=== PATIENT | male | born 1985 | race Caucasian/White ===

== ENCOUNTER 2020-06-06 12:33 | Outpatient (REF) | payer OTHER, SELFPAY ==
[2020-06-06 14:35] LABS: Alanine Aminotransferase 9 U/L (0-40); Albumin Level 4.6 g/dL (3.5-5.0); Alkaline Phosphatase 78 U/L (39-117); Anion Gap 14 (12-20); Aspartate Amino Transferase 11 U/L (5-37); Bilirubin Direct 0.2 mg/dL (0.0-0.5); Bilirubin Total 0.4 mg/dL (0.0-1.0); Blood Urea Nitrogen 16 mg/dL (9-16); Calcium 9.2 mg/dL (8.4-10.2); Carbon Dioxide 28 mmol/L (22-29); Chloride 104 mmol/L (96-108); Cholesterol 185 mg/dL; Estimated Glomerular Filt Rate > 60; Glucose Fasting 114 mg/dL (60-99); HDL Cholesterol 45 mg/dL; LDL Cholesterol Calculated 111 mg/dl; Potassium 4.8 mmol/l (3.3-5.1); Sodium 141 mmol/L (135-145); Total Protein 7.9 g/dL (6.5-8.0); Triglycerides 145 mg/dL
== END 2020-06-06 12:34 | disposition home or self-care (01) ==
LOC: HO.HMGCLDS 12:33
PROVIDERS: PCP Internal Medicine; Visit Provider Internal Medicine
DX: I10 Essential (primary) hypertension (principal)
CPT/HCPCS: 36415; 80048; 80061; 80076

== ENCOUNTER 2020-10-04 12:30 | Outpatient (REF) | payer OTHER, SELFPAY ==
[2020-10-04 14:20] LABS: Estimated Average Glucose 108 mg/dL; Hemoglobin A1c % 5.4 %
[2020-10-04 14:39] LABS: Alanine Aminotransferase 11 U/L (0-40); Albumin Level 4.4 g/dL (3.5-5.0); Alkaline Phosphatase 77 U/L (39-117); Anion Gap 12 (12-20); Aspartate Amino Transferase 14 U/L (5-37); Bilirubin Total 0.3 mg/dL (0.0-1.0); Blood Urea Nitrogen 17 mg/dL (9-16); Calcium 9.4 mg/dL (8.4-10.2); Carbon Dioxide 25 mmol/L (22-29); Chloride 107 mmol/L (96-108); Estimated Glomerular Filt Rate > 60; Glucose Random 101 mg/dL (60-115); Potassium 4.4 mmol/L (3.3-5.1); Sodium 140 mmol/L (135-145); Total Protein 7.5 g/dL (6.5-8.0)
== END 2020-10-04 12:31 | disposition home or self-care (01) ==
LOC: HO.HMGCLDS 12:30
PROVIDERS: PCP Internal Medicine; Visit Provider Internal Medicine
DX: Z00.01 Encounter for general adult medical examination with abnormal findings (principal); I10 Essential (primary) hypertension; R73.01 Impaired fasting glucose
CPT/HCPCS: 36415; 80053; 83036

== ENCOUNTER 2021-04-24 15:23 | Outpatient (REF) | payer OTHER, SELFPAY ==
--- NOTE | ~2021-04-24 | US_ITS ---
EXAMINATION: US RETROPERITONEAL LIMITED (RENAL ONLY) CLINICAL INFORMATION: Hypertension. Acute injury of kidney. COMPARISON: Renal ultrasound 10/28/2016. TECHNIQUE: Real-time imaging of the kidneys. FINDINGS: RIGHT KIDNEY: 11.5 x 6.1 x 5.7 cm (SAG x AP x TRV). The kidney is normal in size, contour, and echogenicity. Renal cortical thickness is normal. No calculi or focal parenchymal lesions. No hydronephrosis. LEFT KIDNEY: 11.7 x 6.5 x 5.8 cm (SAG x AP x TRV). The kidney is normal in size, contour, and echogenicity. Renal cortical thickness is normal. No calculi or focal parenchymal lesions. No hydronephrosis. There is an echogenic calcification midpole. US/US renal BI IMPRESSION: Unremarkable renal ultrasound except for a punctate calcification in midpole left kidney.
== END 2021-04-24 15:24 | disposition home or self-care (01) ==
LOC: HO.US 15:23
PROVIDERS: Visit Provider Internal Medicine Hypertension Specialist
DX: N17.9 Acute kidney failure, unspecified (principal); I10 Essential (primary) hypertension
CPT/HCPCS: 76775

== ENCOUNTER 2021-05-09 12:16 | Outpatient (REF) | payer OTHER, SELFPAY ==
[2021-05-09 14:21] LABS: Anion Gap 11 (12-20); Blood Urea Nitrogen 11 mg/dL (9-16); Calcium 9.3 mg/dL (8.4-10.2); Carbon Dioxide 29 mmol/L (22-29); Chloride 108 mmol/L (96-108); Estimated Glomerular Filt Rate > 60; Glucose Random 104 mg/dL (60-115); Potassium 4.7 mmol/L (3.3-5.1); Sodium 143 mmol/L (135-145)
[2021-05-09 14:31] LABS: Creatinine Urine 399.87 mg/dL; Protein/Creatinine Ratio, Ur 0.05 (<0.2); Total Protein Urine Random 18 mg/dL (<12)
== END 2021-05-09 12:17 | disposition home or self-care (01) ==
LOC: HO.HMGCLDS 12:16
PROVIDERS: PCP Internal Medicine; Visit Provider Internal Medicine Hypertension Specialist
DX: I10 Essential (primary) hypertension (principal); N17.9 Acute kidney failure, unspecified
CPT/HCPCS: 36415; 80048; 84156

== ENCOUNTER 2022-06-26 11:11 | Outpatient (REF) | payer OTHER, SELFPAY ==
--- NOTE | ~2022-06-26 | XR_ITS ---
EXAMINATION: XR FOOT, LEFT CLINICAL INFORMATION: Foot pain COMPARISON: None TECHNIQUE: AP, lateral, and oblique views of the left foot. FINDINGS: No fracture, dislocation or destructive lesion or radiopaque foreign body. XR/XR foot LT 2V IMPRESSION: Unremarkable exam.
[2022-06-26 13:55] LABS: MANUAL DIFF FLAG NO
[2022-06-26 14:03] LABS: Basophils Percent Auto 0.2 % (0-2); Eosinophils Absolute Auto 0.3 X10*3/uL (0.0-0.4); Eosinophils Percent Auto 3.1 % (0-4); Hematocrit 46.1 % (42.0-52.0); Hemoglobin 15.1 g/dl (14.0-18.0); Imm Gran Abs Auto 0.04 X10*3/uL (0.00-0.03); Imm Gran Pct Auto 0.5 % (0.0-0.4); Lymphocytes Absolute Auto 2.4 X10*3/uL (1.2-4.9); Lymphocytes Percent Auto 27.8 % (20-40); Mean Corpuscular HGB Conc 32.8 g/dl (31.0-36.0); Mean Corpuscular Hemoglobin 29.4 pg (27.0-33.0); Mean Corpuscular Volume 89.9 fL (80.0-98.0); Mean Platelet Volume 9.5 fL (9.4-12.4); Monocytes Absolute Auto 0.6 X10*3/uL (0.1-1.2); Monocytes Percent Auto 6.8 % (2-11); Neutrophils Absolute Auto 5.2 x10*3/uL (2.0-8.3); Neutrophils Percent Auto 61.6 % (45-73); Platelet Count 256 X10*3/uL (160-400); Red Blood Count 5.13 X10*6/uL (4.60-5.80); White Blood Count 8.5 X10*3/uL (4.8-10.8)
[2022-06-26 14:10] LABS: Estimated Average Glucose 114 mg/dL; Hemoglobin A1c % 5.6 %
[2022-06-26 14:38] LABS: Alanine Aminotransferase 14 U/L (0-40); Albumin Level 4.2 g/dL (3.5-5.0); Alkaline Phosphatase 63 U/L (39-117); Anion Gap 12 (12-20); Aspartate Amino Transferase 14 U/L (5-37); Bilirubin Total 0.5 mg/dL (0.0-1.0); Blood Urea Nitrogen 15 mg/dL (9-16); Calcium 9.1 mg/dL (8.4-10.2); Carbon Dioxide 25 mmol/L (22-29); Chloride 108 mmol/L (96-108); Estimated Glomerular Filt Rate > 60; Glucose Random 117 mg/dL (60-115); Potassium 4.1 mmol/L (3.3-5.1); Sodium 141 mmol/L (135-145); Total Protein 7.1 g/dL (6.5-8.0)
[2022-06-26 14:44] LABS: TSH reflex Free T4 1.59 uIU/mL (0.32-4.0)
[2022-06-27 05:48] LABS: LDL Cholesterol Direct 135 mg/dL (<100)
== END 2022-06-26 11:12 | disposition home or self-care (01) ==
LOC: HO.HMGCLDS 11:11
PROVIDERS: Visit Provider Internal Medicine
DX: Z00.01 Encounter for general adult medical examination with abnormal findings (principal); S99.922A Unspecified injury of left foot, initial encounter; R73.01 Impaired fasting glucose; I10 Essential (primary) hypertension; E66.09 Other obesity due to excess calories; X58.XXXA Exposure to other specified factors, initial encounter; Y93.9 Activity, unspecified; Y92.9 Unspecified place or not applicable; Y99.9 Unspecified external cause status
CPT/HCPCS: 36415; 73620; 80053; 83036; 83721; 84443; 85025

== ENCOUNTER → 2022-07-03 14:48 | Outpatient (BNVA) | payer OTHER, SELFPAY | PROVIDERS: PCP Internal Medicine; Visit Provider Urology | DX: N41.9 Inflammatory disease of prostate, unspecified (principal) | CPT/HCPCS: 99202 ==

== ENCOUNTER → 2022-07-04 14:43 | Outpatient (BNVA) | payer OTHER, SELFPAY | PROVIDERS: PCP Internal Medicine; Visit Provider Physician Assistant | DX: M72.2 Plantar fascial fibromatosis (principal) | CPT/HCPCS: 99202 ==

== ENCOUNTER → 2022-08-14 11:38 | Outpatient (BNVA) | payer OTHER, SELFPAY | PROVIDERS: PCP Internal Medicine; Visit Provider Physician Assistant | DX: K21.9 Gastro-esophageal reflux disease without esophagitis (principal) | CPT/HCPCS: 99202 ==

== ENCOUNTER 2022-08-19 14:17 | Outpatient (REF) | payer OTHER, SELFPAY | END 2022-08-19 14:18 | disposition home or self-care (01) | LOC: HO.HMGCLNP 14:17 | PROVIDERS: PCP Internal Medicine; Visit Provider Physician Assistant | DX: A04.8 Other specified bacterial intestinal infections (principal) | CPT/HCPCS: 87338 ==

== ENCOUNTER 2022-09-12 14:00 | Outpatient (RCR) | payer OTHER, SELFPAY ==
--- NOTE | 2022-08-01 17:00 | MHC.PT.EP ---
[facility] [place] [facility] [place] [facility] Office [address] [phone] F: [phone] F: [phone] F: [phone] F: [phone] Physical Therapy Plan of Care Date of Evaluation: Date of Surgery: Diagnosis: LEFT foot Plantar fascial fibromatosis Assessment: Patient is a 36 y.o. male who is referred to PT by YUDITH Haji, with Dx of LEFT foot Plantar fascial fibromatosis. Patient impairments include pain, palpable nodule/scar tissue, antalgic gait. Patient current functional limitations are difficulty with uneven surfaces during gait due to pain bottom of foot. Patient will benefit from skilled PT to address aforementioned impairments and functional limitations to meet established goals. Frequency and Duration: The patient will be seen 2x/week for 4 weeks Short Term Goals: 2 weeks Patient demonstrates consistency and independence with HEP to self manage symptoms. Long-Term Goals: 4 weeks Patient presents with increased L ankle DF 5 degrees to normalize gait pattern. Patient presents with increased L ankle inversion/eversion strength to ambulate on uneven surfaces without sxs. Treatment Plan: Modalities to reduce pain, spasms and effusion. Manual therapy to restore motion and function. Therapeutic exercise to improve strength and flexibility. Neuromuscular re-education for posture and balance. Therapeutic activities to return to functional activities of daily living. Electronically signed by: Dieter Arellano, PT, DPT Please sign and return to therapist. Thank you for your referral.
--- NOTE | 2022-09-12 14:51 | MHC.PT.DC ---
[facility] [place] Office [place] Office [place] Office [address] Zenon Constantino [address] [phone] F: [phone] F: [phone] F: [phone] F: [phone] Physical Therapy Discharge Report Diagnosis: LEFT foot Plantar fascial fibromatosis Date of Surgery: Date of Evaluation: 08/01/22 Date of Discharge: 09/12/22 Treatments to Date: 6 Cancellations to Date: No Shows to Date: Discharge Status: Achieved Goals Improved Function Independent with HEP Discharge Summary: Patient presents with near resolved symptoms of nodule in plantar aspect of L foot he came to PT for. Treatments helped to reduce pain to 0/10 and with very minimal tenderness with manual therapy to reduce tissue tension. I educate him on continuing to massage the area at home to fully resolve all sxs and he can utilize sports tape ([employer] K-tape) at home if needed. He is discharged from PT at this time. Electronically signed by: Dieter Arellano, PT, DPT Please sign and return to therapist. Thank you for your referral.
== END 2022-09-12 15:04 | disposition home or self-care (01) ==
LOC: HO.PT 14:00
PROVIDERS: PCP Internal Medicine; Visit Provider Physician Assistant
DX: M72.0 Palmar fascial fibromatosis [Dupuytren] (principal)
CPT/HCPCS: 97035; 97110; 97112; 97140; 97161

== ENCOUNTER → 2022-10-07 11:48 | Outpatient (BNVA) | payer OTHER, SELFPAY | PROVIDERS: PCP Internal Medicine; Visit Provider Urology ==

== ENCOUNTER → 2022-10-22 12:29 | Outpatient (BNVA) | payer OTHER, SELFPAY | PROVIDERS: PCP Internal Medicine; Visit Provider Physician Assistant ==

== ENCOUNTER 2023-01-08 15:08 | Outpatient (AMB) | payer OTHER, SELFPAY ==
--- NOTE | 2023-01-08 15:13 | A.OFFPC_ITS ---
Vital Signs 01/08/23 15:14 Height 6 ft 2 in Weight 225 lb 8 oz BMI 28.9 BP 120/72 Blood Pressure Location Lt brachial Position Sitting Pulse 70 Pulse Source Pulse Oximeter Pulse Oximetry (%) 100 Oxygen Delivery Method Room Air Intake Visit Reasons: request for cardiology referral-chest tightness Allergies No Known Allergies [No Known Allergies*] Allergy (Verified 01/08/23 15:20) Medication List - Last Reconciled 01/08/[address]once MD amlodipine 1/2 tab a day PO daily; metoprolol tartrate 100 mg PO DAILY pantoprazole 40 mg PO DAILY PRN 30 days tamsulosin (Flomax) 0.4 mg PO BEDTIME Tobacco use date assessed: 01/08/23 Dental Screening Dental Screen Date: 01/08/23 Did you have a dental visit in the last 12 months?: No Did you have a dental problem in the last 6 months where you did not have access to dental care?: No Was dental information given to patient?: No HPI request for cardiology referral-chest tightness HPI Details Patient is 37-year-old gentleman came in today to talk about chest tightness Patient says that it happens off and on, he is feeling fine today. Patient says that sometimes it happens when he is active and then other times it happens when he is eating something. Patient is currently under care of gastroenterology and is taking medication through them which is helping him with the symptoms. However he continued to have chest tightness which is concerning to patient. He has stop drinking alcohol 2 years ago patient was drinking excessively before that EKG done today shows normal sinus rhythm no acute findings 68 beats per minute, he does have hypertension and is taking medication with good control of blood pressure. I have ordered echocardiogram and exercise stress test for him and I have placed a referral to technology sales representative for evaluation COUNTS INCLUDE [facility] BEDS AT THE [facility] Surgical History History of tonsillectomy Family History Father No problems noted. Mother No problems noted. Brother No problems noted. Sister No problems noted. Social History Housing: House Alcohol intake: current Alcohol intake frequency: a few times a month Patient Tobacco Use Status: Never used Tobacco e-Cigarette/Vaping Use: Never Used Current occupational status: unemployed Cognitive needs: No Hearing needs: No Vision needs: No Questionnaire PHQ-9 Over the last 2 weeks, how often have you been bothered by any of the following problems? 1. Little interest or pleasure in doing things: more than half the days 2. Feeling down, depressed, or hopeless: more than half the days 3. Trouble falling or staying asleep, or sleeping too much: more than half the days 4. Feeling tired or having little energy: more than half the days 5. Poor appetite or overeating: more than half the days 6. Feeling bad about yourself - or that you are a failure or have let yourself or your family down: more than half the days 7. Trouble concentrating on things, such as reading the newspaper or watching television: more than half the days 8. Moving or speaking so slowly that other people could have noticed. Or the opposite - being so fidgety or restless that you have been moving around a lot more than usual: more than half the days 9. Thoughts that you would be better off or of hurting yourself in some way: more than half the days Total score: 18 Depression Screening Interpretation: Positive 40896 - PHQ-9 Billing: Yes Source: Developed by Drs. Benoit Trammell, Gisella Billingsley, Олег Allison and colleagues, with an educational satish from [employer]. Thrive Questionnaire Date Thrive assessed: 01/08/23 I am a: Patient What is your living situation today?: I have a steady place to live Within the past 12 months, did the food you bought not last and you didn't have the money to get more?: Never true Within the past 12 months, did you worry whether your food would run out before you got money to buy more?: Never true Do you have trouble paying for medicines?: No Do you have trouble getting transportation to medical appointments?: No Do you have trouble paying your heating and electricity bill?: No Do you have trouble taking care of your child, family member or friend?: No Do you have trouble with day-to-day activities such as bathing, preparing meals, shopping, managing finances, etc.?: No Are you currently unemployed and looking for a job?: No Are you interested in more education?: No AUDIT C Alcohol Use Questionnaire (AUDIT-C) 1. How often do you have a drink containing alcohol?: Never 3. How often do you have six or more drinks on one occasion?: Never Total Score: 0 Score Reviewed/Action Taken: Yes MAXIMO-7 AMB Questionnaire MAXIMO-7 Date MAXIMO - 7 assessed: 01/08/23 Feeling nervous, anxious, or on edge: 2 = More than half the days Not being able to stop or control worryin = More than half the days Worrying too much about different things: 2 = More than half the days Trouble relaxin = More than half the days Being so restless that it is hard to sit still: 2 = More than half the days Becoming easily annoyed or irritable: 2 = More than half the days Feeling afraid as if something awful might happen: 2 = More than half the days Total MAXIMO-7 score (0-4 normal; 5-9 mild; 10-14 moderate; 15-21 severe): 14 Source: Developed by Drs. Benoit Trammell, Gisella Billingsley, Олег Allison and colleagues, with an educational satish from [employer]. MAXIMO-7 Assessment Billing MAXIMO-7 Assessment Tool: MAXIMO-7 Assessment 86552 Review of Systems Const Denies chills and Denies fever(s) ENT Denies epistaxis and Denies nasal discharge Resp Denies chest congestion, Denies cough and Denies hemoptysis GI Denies diarrhea and Denies nausea Skin/Breast Denies rash Neuro Reports no additional complaints Psych Reports no additional complaints Endo Reports no additional complaints Physical exam (Primary Care) Vital Signs: Last Vital Signs Pulse 70 01/08/23 15:14 BP 120/72 01/08/23 15:14 Pulse Ox 100 01/08/23 15:14 Oxygen Delivery Method Room Air 01/08/23 15:14 BMI result Body Mass Index 28.9 Tobacco/Smoking Status: Tobacco use Status Tobacco use date assessed 01/08/23 01/08/23 15:23 Patient Tobacco Use Status Never used Tobacco 01/08/23 15:16 e-Cigarette/Vaping Use Never Used 01/08/23 15:16 PHQ-9: PHQ-9 Score PHQ-9: Total score 18 01/08/23 15:43 Depression Screening Interpretation: Positive Thrive Assessment: Date of Thrive Assessment Date Thrive assessed 01/08/23 01/08/23 15:43 Const General: cooperative, comfortable and no acute distress Orientation/consciousness: patient oriented x3 HENWV Head: Yes normocephalic Eyes General: appearance normal, both eyes and all related structures Neck Neck: Yes supple Resp Effort & Inspection: normal respiratory effort, no cough and no stridor Cardio Rhythm: regular rhythm Heart sounds: S1 normal heart sound present and S2 normal heart sound present Skin General skin exam: turgor normal Neuro General: patient oriented x3, tone normal and moves all extremities Extrem Right lower extremity: no edema Left lower extremity: no edema Office Procedures EKG 50310-[id number], Complete Assessment and Plan Assessment & Plan (1) Chest tightness: Code(s): R07.89 - Other chest pain (2) Hypertension, essential: Code(s): I10 - Essential (primary) hypertension (3) Acid reflux: Comment: Continue pantoprazole, avoid culprits Code(s): K21.9 - Gastro-esophageal reflux disease without esophagitis Qualifiers: Esophagitis presence: with esophagitis Esophagitis bleeding: without hemorrhage Qualified Code(s): K21.00 - Gastro-esophageal reflux disease with esophagitis, without bleeding (4) Major depression, recurrent: Code(s): F33.9 - Major depressive disorder, recurrent, unspecified Qualifiers: Active/Remission status: currently active Major depression episode severity: severe Psychotic features: without psychotic features Qualified Code(s): F33.2 - Major depressive disorder, recurrent severe without psychotic features Plan Patient is 37-year-old gentleman came in today to talk about chest tightness Patient says that it happens off and on, he is feeling fine today. Patient says that sometimes it happens when he is active and then other times it happens when he is eating something. Patient is currently under care of gastroenterology and is taking medication through them which is helping him with the symptoms. However he continued to have chest tightness which is concerning to patient. He has stop drinking alcohol 2 years ago patient was drinking excessively before that EKG done today shows normal sinus rhythm no acute findings 68 beats per minute, he does have hypertension and is taking medication with good control of blood pressure. I have ordered echocardiogram and exercise stress test for him and I have placed a referral to technology sales representative for evaluation His depression screening is positive I have sent message to baby health coordinator Orders: Orders CA stress test Today I10 - Essential (primary) hypertension, R07.89 - Other chest pain CA echo transthoracic complete Today I10 - Essential (primary) hypertension, R07.89 - Other chest pain AMB EKG-In Office Today R07.89 - Other chest pain Referrals Cardiology Referral I10 - Essential (primary) hypertension, R07.89 - Other chest pain Coding Level of Care Code Est Pt Level 4 (47496) Diagnoses Chest tightness R07.89 Hypertension, essential I10 Acid reflux K21.00 Esophagitis presence: with esophagitis Esophagitis bleeding: without hemorrhage Major depression, recurrent F33.2 Active/Remission status: currently active Major depression episode severity: severe Psychotic features: without psychotic features CPT Codes EKG - CPT: 80544-[id number], Complete ([id number]) Additional Codes MAXIMO-7 Assessment Billing - MAXIMO-7 Assessment Tool: MAXIMO-7 Assessment [id number] ([id number])
[2023-01-08 15:14] VITALS: BP 120/72; PULSE 70; O2SAT 100; BMI 28.9
== END 2023-01-08 15:39 | disposition home or self-care (01) ==
PROVIDERS: PCP Internal Medicine; Visit Provider Internal Medicine
DX: R07.89 Other chest pain (principal); I10 Essential (primary) hypertension; K21.00 Gastro-esophageal reflux disease with esophagitis, without bleeding; F33.2 Major depressive disorder, recurrent severe without psychotic features
CPT/HCPCS: 93000; 99214

== ENCOUNTER 2023-01-16 09:36 | Outpatient (AMB) | payer OTHER, SELFPAY ==
--- NOTE | 2023-01-16 09:37 | A.OFFPC_ITS ---
Intake Visit Reasons: Discuss Lab Order~ Allergies No Known Allergies [No Known Allergies*] Allergy (Verified 01/16/23 09:37) Medication List - Last Reconciled 01/16/[address] Ponce MD amlodipine 1/2 tab a day PO daily; metoprolol tartrate 100 mg PO DAILY pantoprazole 40 mg PO DAILY PRN 30 days tamsulosin (Flomax) 0.4 mg PO BEDTIME Tobacco use date assessed: 01/16/23 Dental Screening Dental Screen Date: 01/16/23 Did you have a dental visit in the last 12 months?: No Did you have a dental problem in the last 6 months where you did not have access to dental care?: No Was dental information given to patient?: No HPI Discuss Lab Order~ HPI Details Patient is 37-year-old gentleman. He is complaining of feeling tingling around the corner off his lips, Patient is concerned that he might be having herpes lesion. He is requesting blood test to check for herpes antibodies. Along with other STD screening. He does not have any fever or any other symptoms. He does not have any recent unprotected intimate encounter with anyone as . [facility]LY [facility], [facility] Surgical History History of tonsillectomy Family History Father No problems noted. Mother No problems noted. Brother No problems noted. Sister No problems noted. Social History Housing: House Alcohol intake: current Alcohol intake frequency: a few times a month Patient Tobacco Use Status: Never used Tobacco e-Cigarette/Vaping Use: Never Used Current occupational status: unemployed Cognitive needs: No Hearing needs: No Vision needs: No Questionnaire Thrive Questionnaire Date Thrive assessed: 01/08/23 AUDIT C Alcohol Use Questionnaire (AUDIT-C) 1. How often do you have a drink containing alcohol?: Never 3. How often do you have six or more drinks on one occasion?: Never Total Score: 0 Score Reviewed/Action Taken: Yes MAXIMO-7 AMB Questionnaire MAXIMO-7 Date MAXIMO - 7 assessed: 01/08/23 Source: Developed by Drs. Benoit Trammell, Gisella BillingsleyОлег and colleagues, with an educational satish from [employer]. Review of Systems Const Denies chills and Denies fever(s) ENT Denies epistaxis and Denies nasal discharge Card Denies chest pain Resp Denies chest congestion, Denies cough and Denies hemoptysis GI Denies diarrhea and Denies nausea Skin/Breast Denies rash Neuro Reports no additional complaints Psych Reports no additional complaints Endo Reports no additional complaints Physical exam (Primary Care) Tobacco/Smoking Status: Tobacco use Status Tobacco use date assessed 01/16/23 01/16/23 09:38 Patient Tobacco Use Status Never used Tobacco 01/16/23 09:38 e-Cigarette/Vaping Use Never Used 01/16/23 09:38 Thrive Assessment: Date of Thrive Assessment Date Thrive assessed 01/08/23 01/16/23 09:38 Telehealth Telehealth Location of provider rendering services: practice address Location of patient: address on file Patient Identification confirmed using: Name, : Yes Telehealth method: voice only Patient verbally consented to treatment: Yes Patient verbally consented to billing insurance company: Yes Patient informed of any privacy concerns related to visit: Yes Minutes spent on Phone/Video with Pt.: 13 Assessment and Plan Assessment & Plan (1) Screening for STD (sexually transmitted disease): Code(s): Z11.3 - Encounter for screening for infections with a predominantly sexual mode of transmission (2) Tingling sensation in face: Code(s): R20.2 - Paresthesia of skin Plan Patient is 37-year-old gentleman. He is complaining of feeling tingling around the corner off his lips, Patient is concerned that he might be having herpes lesion. He is requesting blood test to check for herpes antibodies. Along with other STD screening. He does not have any fever or any other symptoms. He does not have any recent unprotected intimate encounter with anyone as . Orders: Orders Hepatitis B Surface Antibody Today R20.2 - Paresthesia of skin, Z11.3 - Encounter for screening for infections with a predominantly sexual mode of transmission Hepatitis C Antibody Today R20.2 - Paresthesia of skin, Z11.3 - Encounter for screening for infections with a predominantly sexual mode of transmission Herpes Simplex Virus Ab IgG Today R20.2 - Paresthesia of skin, Z11.3 - Encounter for screening for infections with a predominantly sexual mode of transmission HIV Ab/Ag Today R20.2 - Paresthesia of skin, Z11.3 - Encounter for screening for infections with a predominantly sexual mode of transmission Syphilis Screen Today R20.2 - Paresthesia of skin, Z11.3 - Encounter for screening for infections with a predominantly sexual mode of transmission Coding Level of Care Code Tele Est Pt Level 3 (14381) Diagnoses Screening for STD (sexually transmitted disease) Z11.3 Tingling sensation in face R20.2
== END 2023-01-16 10:29 | disposition home or self-care (01) ==
LOC: HO.HMGC 09:36
PROVIDERS: PCP Internal Medicine; Visit Provider Internal Medicine
DX: Z11.3 Encounter for screening for infections with a predominantly sexual mode of transmission (principal); R20.2 Paresthesia of skin
CPT/HCPCS: 99213

== ENCOUNTER 2023-01-28 15:15 | Outpatient (REF) | payer OTHER, SELFPAY ==
[2023-01-29 03:54] LABS: Syphilis Screen Nonreactive (Nonreactive)
[2023-01-29 04:10] LABS: HBS Num1 4.58 mIU/mL (0-7.99); HIV AB/AG Nonreactive (Nonreactive); HIV Num 1 0.05 S/CO (0.00-0.99); ~HepC Num1 0.06 S/CO (0.00-0.79); ~Hepatitis B Surface Antibody NONREACTIVE (Nonreactive); ~Hepatitis C Antibody Nonreactive (Nonreactive)
[2023-01-30 04:58] LABS: Herpes Simplex Type 1 IgG >58.00 index; Herpes Simplex Type 2 IgG <0.90 index
== END 2023-01-28 15:16 | disposition home or self-care (01) ==
LOC: HO.HMGCLDS 15:15
PROVIDERS: PCP Internal Medicine; Visit Provider Internal Medicine
DX: R20.2 Paresthesia of skin (principal); Z11.3 Encounter for screening for infections with a predominantly sexual mode of transmission
CPT/HCPCS: 36415; 86695; 86696; 86706; 86780; 86803; 87389

== ENCOUNTER → 2023-02-06 08:10 | Outpatient (REF) | payer OTHER, SELFPAY ==
--- NOTE | 2023-02-06 08:13 | CA_ITS ---
Acquisition Time: 2023-02-06 09:18:17 Total Exercise Time: 00:08:18 Test Indications: CP Medications: SEE H Protocol: JAYDE Max HR: 176 BPM 95% of Pred: 185 BPM Max BP: 160/080 mmHG Max Work Load: 10.1 METS Exercise stress test exercise 8 min 18 sec of Jayde protocol achieving 95% MPHR, with mild SOB, no chest discomfort, with isolated PVCs, with normotensive response to exercise, without EKG changes. Test reviewed with Dr. Curran Referred By: Lane Ponce Overread By: Abril Quinones
--- NOTE | 2023-02-06 08:13 | CA_ITS ---
Transthoracic Echocardiogram Patient (Last, First, Middle): Fili Weaver, Gender: Male Date of : 1985 Age: 37 Procedure Date: 02/06/2023 Procedure Type: Transthoracic Echocardiogram Location: OP Height: 187.96 cm Weight: 99.79 kg BSA: 2.26 m2 Heart Rate: 82 bpm BP: 130 / 90 mmHg Foreign Student Adviser: TO Referring MD: Lane Ponce MD Symptoms: R07.89 - Other chest pain Study Quality: Adequate w contrast ECG Rhythm: Sinus Conclusions: - The left ventricular systolic function is normal. The calculated ejection fraction is 59% by biplane method. - There is mild septal asymmetric hypertrophy. - No obvious valvular pathology seen on this study. Findings Procedure Information Contrast agent, definity, is being given per protocol without apparent complications. Left Ventricle Normal left ventricular cavity size. The left ventricular systolic function is normal. The calculated ejection fraction is 59% by biplane method. There is no evidence of regional wall motion abnormalities. Diastolic function is normal for age. There is mild septal asymmetric hypertrophy. Right Ventricle Normal right ventricular cavity size and systolic function. Atria Both atria are normal in size. Aortic Valve There is a normal trileaflet aortic valve. There is no aortic valve stenosis. There is no aortic valve regurgitation. Mitral Valve The mitral valve appears normal. There is no mitral valve regurgitation. There is no mitral valve stenosis. Pulmonic Valve The pulmonic valve is likely normal. Tricuspid Valve There is no tricuspid valve regurgitation. Tricuspid regurgitation envelope is inadequate for calculation of right ventricular systolic pressure. Great Vessels The asc aorta is normal in size. Venous The inferior vena cava is normal in size and collapses greater than 50% with inspiration. Pericardium/Pleural There is no evidence of pericardial effusion. Prior Study Comparison No prior study available for comparison. Recommendations, Care & Conclusions No obvious valvular pathology seen on this study. Measurements 2D Linear Measurements IVSd: 1.20 0.6-0.9/0.6-1.0 cm LVIDd: 4.40 3.9-5.3/4.2-5.9 cm LVIDd Index: 1.95 2.4-3.2/2.2-3.1 cm/m2 LVIDs: 3.10 2.0-3.6 cm LVPWd: 0.80 0.7-1.1 cm LA Diam: 3.40 2.7-3.8/3.0-4.0 cm LAIDs Index: 1.50 1.5-2.3 cm/m2 LV Mass: 184.04 67-162/88-224 g LV Mass Index: 81.43 43-95/49-115 g/m2 LVOT Diam: 2.10 3.0+(-)1.3 cm 2D Systolic Function EF 4C: 61.10 >55% EF 2C: 56.20 >55% EF BiP: 58.80 >55% Mitral Valve MV Pk E: 1.01 MV PK A: 0.75 MV Decel Time: 189.00 E/A: 1.30 E'Lateral: 11.30 E'Medial: 7.94 E/E' Med: 12.70 E/E' Lat: 8.90 PHT: 55.00 MVA PHT: 4.00 Decel Reeves: 5.33 Aortic Valve AoV Pk Steffen: 1.32 AoV Mn Stefefn: 0.92 AoV VTI: 0.26 AoV Pk Grad: 7.00 Aov Mn Grad: 4.00 SUKHI Cont.VTI: 2.70 LVOT LVOT Pk Steffen: 1.03 LVOT Mn Steffen: 0.78 LVOT VTI: 0.20 LVOT Pk Grad: 4.00 LVOT Mn Grad: 3.00 LVOT Diam: 2.10 LVOT Area: 3.46 Diastolic Function MV Pk E: 1.01 MV Pk A: 0.75 E/A: 1.30 E'Medial: 7.94 E/E' Med: 12.70 E' Laterial: 11.30 E/E' Lat: 8.90 Right Ventricle TAPSE (mm): 20.00 TVS' Steffen: 10.40 Tricuspid Valve RA Press: 3.00 Great Vessels Aorta Sinus of Valsalva: 3.30 2.0-3.5 cm Ao Asc: 2.90 2.1-3.4 cm Updated in Other Vendor System with Status of Final Adal Hernandez MD electronically signed on 02/06/2023 3:55:06 PM with status of Final
== END ==
LOC: HO.CARD 08:10
PROVIDERS: PCP Internal Medicine; Visit Provider Internal Medicine
DX: R07.89 Other chest pain (principal); I10 Essential (primary) hypertension
CPT/HCPCS: 93017; 93306; Q9957

== ENCOUNTER → 2023-02-06 08:13 | Outpatient (BNV) | payer OTHER, SELFPAY | PROVIDERS: PCP Internal Medicine; Visit Provider Nurse Practitioner | DX: R07.89 Other chest pain (principal) | CPT/HCPCS: 93016; 93018; 93306 ==

== ENCOUNTER 2023-03-31 12:48 | Outpatient (AMB) | payer OTHER, SELFPAY ==
--- NOTE | 2023-03-31 13:20 | A.OFFVIS_ITS ---
Intake Vital Signs 03/31/23 13:31 Height 6 ft 2 in Weight 218 lb BMI 28.0 BP 129/85 Blood Pressure Location Lt brachial Position Sitting Pulse 73 Intake Visit Reasons: follow up req from pt Intake Note: Patient follow up for acid reflex. Patient cc: acid reflex on and off, cough after eating. Denies any other GI issues. 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 Accompanied by: Self / Same As Patient Allergies No Known Allergies [No Known Allergies*] Allergy (Verified 03/31/23 13:20) Medication List - Last Reconciled 03/31/23 by Cata Crump PA-C amlodipine 5 mg PO DAILY 90 days metoprolol tartrate 100 mg PO DAILY pantoprazole 40 mg PO DAILY PRN 30 days tamsulosin (Flomax) 0.4 mg PO BEDTIME HPI HPI Comments History of Present Illness Details A 37 y/o male with acid reflux- pantoprazole 40 mg- break through-he does have a lot of anxiety- Dietary modifications have been somewhat beneficial however symptoms are not completely resolved-again he expresses his anxiety No etoh/no smoking Appetite is fair No bowel issues Nausea no vomiting, hematochezia fever chills PFSH Surgical History History of tonsillectomy Family History Father No problems noted. Mother No problems noted. Brother No problems noted. Sister No problems noted. Social History Housing: House Alcohol intake: current Alcohol intake frequency: a few times a month Patient Tobacco Use Status: Never used Tobacco e-Cigarette/Vaping Use: Never Used Current occupational status: unemployed Cognitive needs: No Hearing needs: No Vision needs: No Review of Systems Const All systems reviewed & are unremarkable except as noted in HPI and below Card Denies chest pain and Denies dyspnea Resp Denies dyspnea Physical Exam Vital Signs: Last Vital Signs Pulse 73 03/31/23 13:31 BP 129/85 03/31/23 13:31 BMI result Body Mass Index 28.0 Const General: cooperative, healthy appearing, comfortable and no acute distress Limitations: no limitations Eyes Sclerae: sclerae normal Resp Effort & Inspection: normal respiratory effort and able to speak in complete sentences Auscultation: clear to auscultation bilaterally, no rales, no rhonchi and no wheezes Cardio Rate: regular rate Rhythm: regular rhythm Heart sounds: S1 normal heart sound present and S2 normal heart sound present GI Palpation (GI): Soft to palpation and nontender Auscultation: normal bowel sounds Skin General skin exam: no rashes or lesions noted Extrem General: Yes full ROM Psych Appearance: grossly normal Mental Status: mental status grossly normal Speech and movement: Normal speech and movement present Affect: Anxious affect present Attitude: cooperative Thought process: Normal thought process present Thought content: Normal thought content present Results AMB Urinalysis, Automated UA Leukoctes 0 Jona/uL Last Edit by ERICKA Simons on 03/31/23 15:10 UA Nitrite Negative Last Edit by Komal Shetty Sunil on 03/31/23 15:10 UA Urobilinogen 0.2 mg/dL Last Edit by Komal Shetty Sunil on 03/31/23 15:1 0 UA Protein 15 mg/dL Last Edit by Komal Shetty [facility] on 03/31/23 15:10 UA pH 5.5 Last Edit by Komal Shetty Sunil on 03/31/23 15:10 UA Blood 0 Jarad/uL Last Edit by Komal Shetty [facility] on 03/31/23 15:10 UA Specific [place] 1.030 Last Edit by Komal Shetty Sunil on 03/31/23 15: 10 UA Ketone Negative Last Edit by Komal Shetty Sunil on 03/31/23 15:10 UA Bilirubin 0 mg/dL Last Edit by Komal Shetty [facility] on 03/31/23 15:10 UA Glucose 0 mg/dL Last Edit by Komal Shetty [facility] on 03/31/23 15:10 Results Reviewed Results Reviewed: Labs 06/2022 Assessment & Plan Assessment & Plan (1) Acid reflux: Comment: Continue pantoprazole, avoid culprits With dietary modifications Code(s): K21.9 - Gastro-esophageal reflux disease without esophagitis Qualifiers: Esophagitis bleeding: without hemorrhage Esophagitis presence: with esophagitis Qualified Code(s): K21.00 - Gastro-esophageal reflux disease with esophagitis, without bleeding Plan: EGD-if negative may offer reassurance Plan Continue PPI Reflux precautions EGD r/o pud, nonulcer dyspepsia, esophagitis other endoscopic findings took over his symptoms Patient Instructions: Continue to avoid culprits Continue PPI Reflux precautions EGD r/o pud, nonulcer dyspepsia, esophagitis other endoscopic findings took over his symptoms Coding Level of Care Code Est Pt Level 3 (27249) Diagnoses Gastroesophageal reflux disease with esophagitis without hemorrhage K21.00 Esophagitis bleeding: without hemorrhage Esophagitis presence: with esophagitis Time Spent (min) 30
[2023-03-31 13:31] VITALS: BP 129/85; PULSE 73; BMI 28.0
== END 2023-03-31 15:36 | disposition home or self-care (01) ==
PROVIDERS: PCP Internal Medicine; Visit Provider Physician Assistant
DX: K21.00 Gastro-esophageal reflux disease with esophagitis, without bleeding (principal)
CPT/HCPCS: 99213

== ENCOUNTER → 2023-03-31 12:48 | Outpatient (BNVA) | payer OTHER, SELFPAY | PROVIDERS: PCP Internal Medicine; Visit Provider Physician Assistant | DX: N41.9 Inflammatory disease of prostate, unspecified (principal); R35.0 Frequency of micturition; K21.00 Gastro-esophageal reflux disease with esophagitis, without bleeding | CPT/HCPCS: 51798; 81003; 99212 ==

== ENCOUNTER 2023-03-31 14:18 | Outpatient (AMB) | payer OTHER, SELFPAY ==
--- NOTE | 2023-03-31 14:31 | A.OFFVIS_ITS ---
Intake Intake Visit Reasons: Prostatitis/Concern Intake Note: Patient presents today for a follow-up on Prostatitis Concern: Meds- Tamsulosin Allergies to Antibiotic- No Known Allergies Blood Thinner- None Unable to void, PVR- 45 mL Relations Specialist Required: No Accompanied by: Self / Same As Patient Allergies No Known Allergies [No Known Allergies*] Allergy (Verified 04/09/23 14:24) Medication List - Last Reconciled 03/31/23 by Dianna Rahman MD amlodipine 5 mg PO DAILY 90 days metoprolol tartrate 100 mg PO DAILY pantoprazole 40 mg PO DAILY PRN 30 days tamsulosin (Flomax) 0.4 mg PO BEDTIME HPI HPI Comments History of Present Illness Details Fili is a 37-year-old male who presents today to the office for a follow-up. 03/31/2023-- He is followed today for prostatitis concern. He states urinary symptoms coming back, he did not get a refill on flomax. He was last seen by me on 10/07/2022 for prostatitis. He was tested for screening of STDs by his PCP on 01/16/2023. 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 UA--Leukocytes: negative; blood: negative; bladder scan PVR: 45 mL. Review of chart: Last visit: 10/07/22- 36-year-old gentleman who is here for pr ostatitis follow-up. He has been treated with augmentin and was placed on Flomax. 03/31/2023: Plan: Flomax. Follow-up in one year. [facility] Surgical History History of tonsillectomy Family History Father No problems noted. Mother No problems noted. Brother No problems noted. Sister No problems noted. Social History Housing: House Alcohol intake: current Alcohol intake frequency: a few times a month Patient Tobacco Use Status: Never used Tobacco e-Cigarette/Vaping Use: Never Used Current occupational status: unemployed Cognitive needs: No Hearing needs: No Vision needs: No Review of Systems Const All systems reviewed & are unremarkable except as noted in HPI and below Reports no additional complaints Eyes Reports no additional complaints ENT Denies neck pain Card Denies leg edema Resp Denies cough GI Denies constipation Musc Reports no additional complaints and Denies neck pain Skin/Breast Denies rash and Denies unusual bruising Neuro Reports no additional complaints Psych Reports no additional complaints Endo Reports no additional complaints Rosalio/Lymph Reports no additional complaints Aller/Immun Reports no additional complaints Office Procedures Post Void Residual Post Residual Void Post Void Residual (PVR): 45 [id number] Void Residual by ultrasound Results AMB Urinalysis, Automated UA Leukoctes 0 Jona/uL Last Edit by Komal Shetty [facility] on 03/31/23 15:10 UA Nitrite Negative Last Edit by Komal Shetty [facility] on 03/31/23 15:10 UA Urobilinogen 0.2 mg/dL Last Edit by Komal Shetty [facility] on 03/31/23 15:1 0 UA Protein 15 mg/dL Last Edit by Komal Shetty [facility] on 03/31/23 15:10 UA pH 5.5 Last Edit by Komal Shetty [facility] on 03/31/23 15:10 UA Blood 0 Jarad/uL Last Edit by Komal Shetty [facility] on 03/31/23 15:10 UA Specific [place] 1.030 Last Edit by Komal Shetty [facility] on 03/31/23 15: 10 UA Ketone Negative Last Edit by Komal Shetty [facility] on 03/31/23 15:10 UA Bilirubin 0 mg/dL Last Edit by Komal Shetty [facility] on 03/31/23 15:10 UA Glucose 0 mg/dL Last Edit by ERICKA Simons on 03/31/23 15:10 Results Reviewed Results Reviewed: Laboratory Last Values Urine pH (Auto) 5.5 03/31/23 14:39 Specific [place] (Auto) 1.030 03/31/23 14:39 Urine Protein (Auto) 15 mg/dL 03/31/23 14:39 Glucose (UA)(Auto) 0 mg/dL 03/31/23 14:39 Urine Ketones (Auto) Negative 03/31/23 14:39 Urine Blood (Auto) 0 Jarad/uL 03/31/23 14:39 Urine Nitrite (Auto) Negative 03/31/23 14:39 Urine Bilirubin (Auto) 0 mg/dL 03/31/23 14:39 Urine Urobilinogen (Auto) 0.2 mg/dL 03/31/23 14:39 Leukocyte Esterase (Auto) 0 Jona/uL 03/31/23 14:39 Assessment & Plan Assessment & Plan (1) Prostatitis: Code(s): N41.9 - Inflammatory disease of prostate, unspecified (2) Urinary frequency: Code(s): R35.0 - Frequency of micturition Plan Flomax. Follow-up in one year. Orders: Orders AMB Post Void Residual by ultrasound 03/31/23 N39.8 - Other specified disorders of urinary system AMB Urinalysis Automated 03/31/23 Z13.9 - Encounter for screening, unspecified Medications: Refilled tamsulosin (Flomax) 0.4 mg PO BEDTIME 90 caps 3RF Patient Instructions: The patient had an opportunity to ask questions regarding treatment plan. All questions were answered. Imaging, Laboratory studies and physical exam results were discussed and reviewed in detail. No major barriers to understanding were identified. The patient expressed understanding and agreement with the above treatment plan. The patient is aware they should contact our office by phone for worsening of their current condition or the appearance of new symptoms. Compliance is encouraged with any medications and followup testing that is ordered. It is a privilege to be allowed the opportunity to participate in the urologic care of your patient. If you have any questions or concerns regarding treatment for the above conditions please do not hesitate to contact me. The office telephone contact is [phone]. This note is constructed in part using voice recognition software. While every effort has been made to ensure accuracy conceptor errors may have been included. Yours sincerely, Dianna Rahman MD Coding Level of Care Code Est Pt Level 4 (70415) Diagnoses Prostatitis N41.9 Urinary frequency R35.0 CPT Codes Post Residual Void - PVR CPT Code: 12546-Wsir Void Residual by ultrasound ([id number])
== END 2023-03-31 15:35 | disposition home or self-care (01) ==
LOC: HO.HUSH 14:19
PROVIDERS: PCP Internal Medicine; Visit Provider Urology
DX: N41.9 Inflammatory disease of prostate, unspecified (principal); R35.0 Frequency of micturition
CPT/HCPCS: 99214

== ENCOUNTER 2023-04-09 14:22 | Outpatient (AMB) | payer OTHER, SELFPAY ==
--- NOTE | 2023-04-09 14:23 | MHC.OFFWIV ---
Intake Vital Signs 04/09/23 14:24 Height 6 ft 2 in Weight 221 lb BMI 28.4 BP 110/70 Blood Pressure Location Lt brachial Position Sitting Pulse 86 Pulse Source Pulse Oximeter Pulse Oximetry (%) 98 Oxygen Delivery Method Room Air Intake Visit Reasons: EST/spots on skin(lobby) Intake Note: Patient here for spots on skin all over body that have been showing up for some time now. Patient Tobacco Use Status: Never used Tobacco Allergies No Known Allergies [No Known Allergies*] Allergy (Verified 04/09/23 14:24) Do you need a note to return to daycare/school/sports/work: No HPI EST/spots on skin(lobby) HPI Details 37 year old male patient presents today with several concerns. He has noticed an increasing amound of freckles/moles onn his skin, particularly his back. He would like to see a b2b account executive, however will need a referral for this. He would also like to see an opthalmologist for a routine eye exam as he feels his near and farsightedness are both worsening in recent years. He would also like his ears checked as he feels they may be blocked with wax. Denies any pain. [facility] Surgical History History of tonsillectomy Family History Father No problems noted. Mother No problems noted. Brother No problems noted. Sister No problems noted. Housing: House Alcohol intake: current Alcohol intake frequency: a few times a month Patient Tobacco Use Status: Never used Tobacco e-Cigarette/Vaping Use: Never Used Current occupational status: unemployed Cognitive needs: No Hearing needs: No Vision needs: No Review of Systems Const All systems reviewed & are unremarkable except as noted in HPI and below Physical Exam Vital Signs: Last Vital Signs Pulse 86 04/09/23 14:24 BP 110/70 04/09/23 14:24 Pulse Ox 98 04/09/23 14:24 Oxygen Delivery Method Room Air 04/09/23 14:24 BMI result Body Mass Index 28.4 Const General: cooperative, healthy appearing and no acute distress HEENT Head: Yes normal to inspection Ears: hearing grossly normal bilaterally, external ears normal and TM's normal bilaterally (cerumen impaction b/l. After irrigation, EACs clear, TMs normal n/l) General nose exam: Normal external nose present and Normal nasal mucous membranes and turbinates present Face and sinus: Yes normal facial exam Eyes General: appearance normal, both eyes and all related structures Alignment and Position: alignment normal Eyelids: Yes eyelids normal Conjunctivae: conjunctivae normal Sclerae: sclerae normal Pupils: Equal, round and reactive pupils present and Pupil accommodation reflex normal EOM: EOMs intact bilaterally Direct Ophthalmoscopy: normal light reflex Resp Effort & Inspection: normal respiratory effort and able to speak in complete sentences Skin Other: numerous circumscribed, flat, brown macules/freckles on back/chest, various other areas of skin. Several small darnell angiomas also present. Nothing concerning was identified on skin exam. No rashes or lesions. General skin exam: no rashes or lesions noted, elasticity normal and turgor normal Neuro Cranial nerves: Yes Equal, round and reactive pupils present Extrem General: Yes no clubbing, cyanosis or edema Psych Appearance: grossly normal Mental Status: mental status grossly normal Speech and movement: Normal speech and movement present Office Procedures Cerumen Removal From which ear canal was the cerumen removed: bilateral Removal: irrigation Notes: patient tolerated procedure well, no complications and ear canal clear 13331-[id number] Irrigation/Lavage Assessment & Plan Assessment & Plan (1) Impacted cerumen of both ears: Code(s): H61.23 - Impacted cerumen, bilateral Plan: B/L ear irrigation performed with a large amount of cerumen removed. Ear canals clear following flush and TMs appear normal. Advised debrox drops for any future cerumen buildup. (2) Freckles: Code(s): L81.2 - Freckles Plan: Patient would like dermatology referral for a routine skin check as he has increasing freckles/angiomas on skin. Will send message to PCP Dr. Ponce for referral. Skin exam at this time is unremarkable; no concerning findings. (3) Farsightedness: Code(s): H52.00 - Hypermetropia, unspecified eye Qualifiers: Laterality: unspecified laterality Qualified Code(s): H52.00 - Hypermetropia, unspecified eye Plan: Patient would like to see an opthalmologist for a checkup/routine eye exam. I advised that he can call any office locally to see if that accept his insurance and make an appointment without referral. He will do this. Coding Level of Care Code Est Pt Level 3 (07466) Diagnoses Impacted cerumen of both ears H61.23 Freckles L81.2 Hypermetropia, unspecified laterality H52.00 Laterality: unspecified laterality CPT Codes Office Procedure - CPT: 16146-Jih Irrigation/Lavage ([id number])
[2023-04-09 14:24] VITALS: BP 110/70; PULSE 86; O2SAT 98; BMI 28.4
== END 2023-04-09 14:56 | disposition home or self-care (01) ==
PROVIDERS: PCP Internal Medicine; Visit Provider Nurse Practitioner Family
DX: H61.23 Impacted cerumen, bilateral (principal); L81.2 Freckles; H52.00 Hypermetropia, unspecified eye; Z90.89 Acquired absence of other organs
CPT/HCPCS: 69209; 99213

== ENCOUNTER 2023-06-25 14:58 | Outpatient (AMB) | payer OTHER, SELFPAY ==
--- NOTE | 2023-06-25 15:02 | A.OFFVIS_ITS ---
Intake Vital Signs 06/25/23 15:04 Height 6 ft 2 in Weight 216 lb 0.848 oz BMI 27.7 BP 106/68 Blood Pressure Location Lt brachial Position Sitting Pulse 81 Intake Visit Reasons: NPV/HTN/Kris Intake Note: NPV Income Tax Adjuster Required: No Accompanied by: Self / Same As Patient Allergies No Known Allergies [No Known Allergies*] Allergy (Verified 06/25/23 15:04) Medication List - Last Reconciled 06/25/23 by Adal Hernandez MD amlodipine 5 mg PO DAILY 90 days metoprolol tartrate 100 mg PO DAILY pantoprazole 40 mg PO DAILY PRN tamsulosin (Flomax) 0.4 mg PO BEDTIME HPI HPI Comments History of Present Illness Details Fili is here for consultation regarding chest tightness. He states he has not sure why he is here. It seems that he has been referred here for chest tightness. When I questioned this in detail, he states that it is a very random episode and can happen any time. No exertional patterns and can happen when he is sitting, resting extra. Sounds very nonspecific and does not suggest exertional angina. It seems that he has undergone an echocardiogram as well as an exercise stress test. Otherwise, no history of any coronary artery disease myocardial infarction or in fact any other cardiac issues. He states that he has hypertension on treatment. He also has acid reflux. [facility] Surgical History History of tonsillectomy Family History Father No problems noted. Mother No problems noted. Brother No problems noted. Sister No problems noted. Social History Housing: House Alcohol intake: current Alcohol intake frequency: a few times a month Patient Tobacco Use Status: Never used Tobacco e-Cigarette/Vaping Use: Never Used Current occupational status: unemployed Cognitive needs: No Hearing needs: No Vision needs: No Review of Systems Const Denies chills, Denies daytime sleepiness, Denies fatigue, Denies fever(s), Denies frequent falls, Denies night sweats, Denies snoring, Denies weakness, Denies weight gain and Denies weight loss Eyes Denies loss of vision ENT Denies dizziness and Denies hearing loss Card Denies chest pain, Denies chest pain with activity, Denies syncope, Denies rapid heart rate, Denies edema, Denies claudication, Denies leg edema, Denies lightheadedness, Denies palpitations, Denies dyspnea, Denies dyspnea on exertion and Denies orthopnea Resp Denies cough, Denies excessive phlegm production, Denies dyspnea, Denies dyspnea on exertion, Denies snoring and Denies wheezing GI Denies abdominal pain, Denies hematochezia, Denies change in bowel habits, Denies change in stool character, Denies heartburn, Denies nausea and Denies vomiting Denies hematuria, Denies dysuria and Denies urinary frequency Musc Denies arthralgias, Denies muscle weakness, Denies numbness and Denies tingling Skin/Breast Denies nail changes and Denies rash Neuro Denies Abnormal speech present, Denies dizziness, Denies syncope, Denies frequent falls, Denies loss of vision, Denies memory loss, Denies numbness, Denies tingling and Denies weakness Psych Denies depression and Denies memory loss Endo Denies fatigue and Denies palpitations Aller/Immun Denies wheezing Physical Exam Vital Signs: Last Vital Signs Pulse 81 06/25/23 15:04 BP 106/68 06/25/23 15:04 BMI result Body Mass Index 27.7 Const General: comfortable and no acute distress Orientation/consciousness: patient oriented x3 HEENT Other: Unremarkable Head: Yes normal to inspection Neck Neck: Yes normal visual inspection Chest Chest palpation & inspection: normal inspection of the chest Resp Auscultation: clear to auscultation bilaterally Cardio Palpation: normal PMI Heart sounds: S1 normal heart sound present, S2 normal heart sound present, no gallops, no murmurs and no rubs GI Palpation (GI): Soft to palpation Back/Spine/Pelvis Other: unremarkable Skin General skin exam: no rashes or lesions noted Neuro General: patient oriented x3 Speech: No Abnormal speech present Extrem General: Yes normal to inspection Psych Mental Status: mental status grossly normal Assessment & Plan Assessment & Plan (1) Precordial chest pain: Code(s): R07.2 - Precordial pain Plan EKG with underlying sinus rhythm at 68/Min; no significant ST-T changes and otherwise unremarkable; normal IN and corrected QT. Echocardiogram with LVEF of 59%. Mild septal hypertrophy but otherwise unremar kable. In the exercise stress test, he was able to exercise for 10.1 METS on Abhijeet protocol; reached target heart rate; no angina or EKG evidence of ischemia. Overall, atypical symptoms, unremarkable testing. Likely noncardiac. Could be from GERD. Reassurance only at this time. Coding Level of Care Code New Pt Level 3 (97396) Diagnoses Precordial chest pain R07.2
[2023-06-25 15:04] VITALS: BP 106/68; PULSE 81; BMI 27.7
== END 2023-06-26 13:22 | disposition home or self-care (01) ==
PROVIDERS: PCP Internal Medicine; Visit Provider Internal Medicine
DX: R07.2 Precordial pain (principal)
CPT/HCPCS: 99203

== ENCOUNTER → 2023-06-25 14:58 | Outpatient (BNVA) | payer OTHER, SELFPAY | PROVIDERS: PCP Internal Medicine; Visit Provider Internal Medicine | DX: R07.2 Precordial pain (principal) | CPT/HCPCS: 99202 ==

== ENCOUNTER 2023-07-04 14:34 | Outpatient (AMB) | payer OTHER, SELFPAY ==
[2023-07-04 14:36] VITALS: BP 104/80; PULSE 83; O2SAT 99; BMI 28.1
--- NOTE | 2023-07-04 14:36 | A.OFFPC_ITS ---
Vital Signs 07/04/23 14:36 Height 6 ft 2 in Weight 218 lb 8 oz BMI 28.1 BP 104/80 Blood Pressure Location Lt brachial Position Sitting Pulse 83 Pulse Source Pulse Oximeter Pulse Oximetry (%) 99 Oxygen Delivery Method Room Air Intake Visit Reasons: PE Allergies No Known Allergies [No Known Allergies*] Allergy (Verified 07/04/23 14:38) Medication List - Last Reconciled 07/04/[address] Ponce MD amlodipine 5 mg PO DAILY 90 days metoprolol tartrate 100 mg PO DAILY pantoprazole 40 mg PO DAILY PRN tamsulosin (Flomax) 0.4 mg PO BEDTIME Tobacco use date assessed: 07/04/23 Dental Screening Dental Screen Date: 07/04/23 Did you have a dental visit in the last 12 months?: Yes Did you have a dental problem in the last 6 months where you did not have access to dental care?: No Was dental information given to patient?: Patient has dentist HPI PE HPI Details 37-year-old gentleman came in today for physical examination His blood pressure is running, I am stopping the amlodipine Patient may continue metoprolol half of 100 mg tablet Labs are due today [facility] Surgical History History of tonsillectomy Family History Father No problems noted. Mother No problems noted. Brother No problems noted. Sister No problems noted. Social History Housing: House Alcohol intake: current Alcohol intake frequency: a few times a month Patient Tobacco Use Status: Never used Tobacco e-Cigarette/Vaping Use: Never Used Current occupational status: unemployed Cognitive needs: No Hearing needs: No Vision needs: No Questionnaire Thrive Questionnaire Date Thrive assessed: 01/08/23 MAXIMO-7 AMB Questionnaire MAXIMO-7 Date MAXIMO - 7 assessed: 01/08/23 Source: Developed by Drs. Benoit Trammell, Gisella Billingsley, Олег Allison and colleagues, with an educational satish from [employer]. Review of Systems Const Denies chills, Denies fever(s) and Denies headache(s) Eyes Denies blurry vision ENT Denies headache(s), Denies nasal discharge, Denies nasal obstruction, Denies odynophagia and Denies sinus pain Card Denies chest pain at rest and Denies chest pain with activity Resp Denies cough and Denies hemoptysis GI Denies diarrhea, Denies odynophagia, Denies vomiting and Denies hematemesis Reports as per HPI Musc Denies abnormal gait Skin/Breast Reports as per HPI Neuro Denies Neuro-related abnormal movements, Denies Abnormal speech present, Denies abnormal gait, Denies headache(s) and Denies Sensory deficit (Neuro) Psych Denies mood swings and Denies paranoia Endo Reports as per HPI Rosalio/Lymph Reports as per HPI Aller/Immun Reports as per HPI Physical exam (Primary Care) Vital Signs: Last Vital Signs Pulse 83 07/04/23 14:36 BP 104/80 07/04/23 14:36 Pulse Ox 99 07/04/23 14:36 Oxygen Delivery Method Room Air 07/04/23 14:36 BMI result Body Mass Index 28.1 Tobacco/Smoking Status: Tobacco use Status Tobacco use date assessed 07/04/23 07/04/23 14:41 Patient Tobacco Use Status Never used Tobacco 07/04/23 14:41 e-Cigarette/Vaping Use Never Used 07/04/23 14:41 Thrive Assessment: Date of Thrive Assessment Date Thrive assessed 01/08/23 07/04/23 14:41 Const General: cooperative, comfortable and no acute distress Orientation/consciousness: patient oriented x3 HENMT Head: Yes normocephalic and Yes atraumatic Eyes General: appearance normal, both eyes and all related structures Pupils: Equal, round and reactive pupils present EOM: EOMs intact bilaterally Neck Neck: Yes supple and No lymphadenopathy Thyroid: Thyroid normal Lymphatic: no lymphadenopathy noted Resp Effort & Inspection: normal respiratory effort and able to speak in complete sentences Auscultation: clear to auscultation bilaterally Cardio Heart sounds: S1 normal heart sound present and S2 normal heart sound present GI Palpation (GI): Soft to palpation and nontender Auscultation: normal bowel sounds General: Yes no CVA tenderness Back/Spine/Pelvis Back: no CVA tenderness Skin General skin exam: elasticity normal and turgor normal Neuro General: patient oriented x3 and gait normal Cranial nerves: Yes Equal, round and reactive pupils present Speech: No Abnormal speech present Sensory Exam: No Sensory deficit (Neuro) Coordination: tandem gait normal and Romberg test negative Extrem General: Yes normal exam except as noted and No edema Office Procedures Flu Questionnaire Does the patient have a severe egg allergy?: No Does the patient have severe life threatening allergies?: No Does the patient have a fever or illness today?: No Has the patient ever had Guillain-[place] Syndrome?: No Has the patient ever had any past reaction to a flu shot?: No Immunizations flu vacc [id number] 6mos up(PF) 60 mcg(15 mcgx4)/0.5 mL IM syringe Performing Provider: Lane Ponce MD Performing Location: [facility] Administered by: Analy Gonzalez CMA on 07/04/23 14:49 Dose Route Admin Location Dispensed Lot Number Expiration Date NDC [employer] 0.5 mL IM Right Deltoid 0.5 mL [id number] 11/16/23 [id number] [employer] VIS Given Date VIS Provided VIS Publication Date 07/04/23 Single Vaccine 20 Eligibility Eligibility Date Funding Source Not [facility] Eligible 07/04/23 Private Assessment and Plan Assessment & Plan (1) Encounter for general adult medical examination with abnormal findings: Code(s): Z00.01 - Encounter for general adult medical examination with abnormal findings (2) Impaired fasting blood sugar: Code(s): R73.01 - Impaired fasting glucose (3) Erectile disorder: Code(s): N52.9 - Male erectile dysfunction, unspecified (4) Acid reflux: Comment: Continue pantoprazole, avoid culprits With dietary modifications Code(s): K21.9 - Gastro-esophageal reflux disease without esophagitis Qualifiers: Esophagitis bleeding: without hemorrhage Esophagitis presence: with esophagitis Qualified Code(s): K21.00 - Gastro-esophageal reflux disease with esophagitis, without bleeding (5) Major depression, recurrent: Code(s): F33.9 - Major depressive disorder, recurrent, unspecified Qualifiers: Active/Remission status: currently active Major depression episode severity: severe Psychotic features: without psychotic features Qualified Code(s): F33.2 - Major depressive disorder, recurrent severe without psychotic features Plan 37-year-old gentleman came in today for physical examination His blood pressure is running, I am stopping the amlodipine Patient may continue metoprolol half of 100 mg tablet Labs are due today Frequency of urination managed by Urology Patient is also seeing Gastroenterology for acid reflux Orders: Orders Complete Blood Count Auto Diff Today E66.09 - Other obesity due to excess calories, F33.9 - Major depressive disorder, recurrent, unspecified, K21.9 - Gastro-esophageal reflux disease without esophagitis, N52.9 - Male erectile dysfunction, unspecified, R73.01 - Impaired fasting glucose, Z00.01 - Encounter for general adult medical examination with abnormal findings Comprehensive Met. Panel Today E66.09 - Other obesity due to excess calories, F33.9 - Major depressive disorder, recurrent, unspecified, K21.9 - Gastro- esophageal reflux disease without esophagitis, N52.9 - Male erectile dysfunction, unspecified, R73.01 - Impaired fasting glucose, Z00.01 - Encounter for general adult medical examination with abnormal findings LDL Cholesterol Direct Today E66.09 - Other obesity due to excess calories, F33.9 - Major depressive disorder, recurrent, unspecified, K21.9 - Gastro-esop hageal reflux disease without esophagitis, N52.9 - Male erectile dysfunction, unspecified, R73.01 - Impaired fasting glucose, Z00.01 - Encounter for general adult medical examination with abnormal findings TSH reflex Free T4 Today E66.09 - Other obesity due to excess calories, F33.9 - Major depressive disorder, recurrent, unspecified, K21.9 - Gastro-esophageal reflux disease without esophagitis, N52.9 - Male erectile dysfunction, unspecified, R73.01 - Impaired fasting glucose, Z00.01 - Encounter for general adult medical examination with abnormal findings Hemoglobin A1c Today R73.01 - Impaired fasting glucose Influenza [id number] Immunization Today Z23 - Encounter for immunization Medications: New metoprolol tartrate 100 mg PO DAILY 90 tabs 0RF Discontinued amlodipine Discontinued Reason: Doctor's Order 5 mg PO DAILY 90 days 90 tabs 0RF Coding Level of Care Code Est Pt Prev Care 18-39y(88110) Diagnoses Encounter for general adult medical examination with abnormal findings Z00.01 Impaired fasting blood sugar R73.01 Erectile disorder N52.9 Gastroesophageal reflux disease with esophagitis without hemorrhage K21.00 Esophagitis bleeding: without hemorrhage Esophagitis presence: with esophagitis Severe episode of recurrent major depressive disorder, without psychotic features F33.2 Active/Remission status: currently active Major depression episode severity: severe Psychotic features: without psychotic features
== END 2023-07-04 15:00 | disposition home or self-care (01) ==
PROVIDERS: Visit Provider Internal Medicine
DX: Z00.00 Encounter for general adult medical examination without abnormal findings (principal); F33.2 Major depressive disorder, recurrent severe without psychotic features; R73.01 Impaired fasting glucose; Z23 Encounter for immunization; N52.9 Male erectile dysfunction, unspecified; K21.00 Gastro-esophageal reflux disease with esophagitis, without bleeding; E66.09 Other obesity due to excess calories
CPT/HCPCS: 90471; 90686; 99395

== ENCOUNTER 2023-07-04 14:59 | Outpatient (REF) | payer OTHER, SELFPAY ==
[2023-07-04 16:33] LABS: Basophils Percent Auto 0.1 % (0-2); Eosinophils Absolute Auto 0.2 X10*3/uL (0.0-0.4); Eosinophils Percent Auto 2.5 % (0-4); Hematocrit 45.9 % (42.0-52.0); Imm Gran Abs Auto 0.02 X10*3/uL (0.00-0.03); Imm Gran Pct Auto 0.3 % (0.0-0.4); Lymphocytes Absolute Auto 2.2 X10*3/uL (1.2-4.9); Lymphocytes Percent Auto 29.9 % (20-40); MANUAL DIFF FLAG NO; Mean Corpuscular HGB Conc 32.7 g/dl (31.0-36.0); Mean Corpuscular Hemoglobin 29.5 pg (27.0-33.0); Mean Corpuscular Volume 90.2 fL (80.0-98.0); Mean Platelet Volume 9.5 fL (9.4-12.4); Monocytes Absolute Auto 0.5 X10*3/uL (0.1-1.2); Monocytes Percent Auto 6.9 % (2-11); Neutrophils Absolute Auto 4.5 x10*3/uL (2.0-8.3); Neutrophils Percent Auto 60.3 % (45-73); Platelet Count 231 X10*3/uL (160-400); Red Blood Count 5.09 X10*6/uL (4.60-5.80); Red Cell Distribution Width 13.2 % (11.0-16.0); White Blood Count 7.5 X10*3/uL (4.8-10.8)
[2023-07-04 16:40] LABS: Estimated Average Glucose 103 mg/dL; Hemoglobin A1c % 5.2 % (<6.0)
[2023-07-04 17:11] LABS: Alanine Aminotransferase 42 U/L (0-40); Albumin Level 4.3 g/dL (3.5-5.0); Alkaline Phosphatase 53 U/L (39-117); Anion Gap 10 (12-20); Aspartate Amino Transferase 28 U/L (5-37); Bilirubin Total 0.5 mg/dL (0.0-1.0); Blood Urea Nitrogen 19 mg/dL (9-16); Calcium 9.3 mg/dL (8.4-10.2); Carbon Dioxide 29 mmol/L (22-29); Chloride 104 mmol/L (96-108); Estimated Glomerular Filt Rate > 60; Glucose Random 101 mg/dL (60-115); Potassium 4.3 mmol/L (3.3-5.1); Sodium 139 mmol/L (135-145); Total Protein 7.7 g/dL (6.5-8.0)
[2023-07-04 17:27] LABS: TSH reflex Free T4 0.88 uIU/mL (0.32-4.0)
[2023-07-05 11:09] LABS: LDL Cholesterol Direct 116 mg/dL (<100)
== END 2023-07-04 15:00 | disposition home or self-care (01) ==
LOC: HO.HMGCLDS 14:59
PROVIDERS: PCP Internal Medicine; Visit Provider Internal Medicine
DX: Z00.01 Encounter for general adult medical examination with abnormal findings (principal); R73.01 Impaired fasting glucose; E66.09 Other obesity due to excess calories; N52.9 Male erectile dysfunction, unspecified; K21.9 Gastro-esophageal reflux disease without esophagitis; F33.9 Major depressive disorder, recurrent, unspecified
CPT/HCPCS: 36415; 80053; 83036; 83721; 84443; 85025

== ENCOUNTER 2023-07-09 12:55 | Outpatient (AMB) | payer OTHER, SELFPAY ==
--- NOTE | 2023-07-09 12:56 | A.OFFVIS_ITS ---
Intake Intake Visit Reasons: Prostatitis- 9m follow up Intake Note: Patient presents today for a follow-up on Prostatitis Concern: Meds- Tamsulosin Allergies to Antibiotic- No Known Allergies Blood Thinner- None Saturator Tender Required: No Accompanied by: Self / Same As Patient Allergies No Known Allergies [No Known Allergies*] Allergy (Verified 07/09/23 12:57) Medication List - Last Reconciled 07/09/23 by iDanna Rahman MD metoprolol tartrate 100 mg PO DAILY pantoprazole 40 mg PO DAILY PRN tamsulosin (Flomax) 0.4 mg PO BEDTIME HPI HPI Comments History of Present Illness Details 07/09/23--Fili is a 37-year-old male who presents today for a telehealth follow-up. He has been treated for prostatitis, currently on flomax. He states that the flomax helps but he still gets intermittent pressure below the scrotum area denies dysuria, he feels that he emptying his bladder well. In review of previous Urinalysis testing, it is notable for proteinuria. I have discussed referral to Nephrology Discussed Cont Flomax, recommended he trial increasing to bid but if he sees no difference in the symptoms to go back to flomax once daily. Review of chart: 03/31/2023-- He is followed today for prostatitis concern. He states urinary symptoms coming back, he did not get a refill on flomax. He was last seen by me on 10/07/2022 for prostatitis. He was tested for screening of STDs by his PCP on 01/16/2023. 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 UA--Leukocytes: negative; blood: negative; bladder scan PVR: 45 mL. 10/07/22- 36-year-old gentleman who is here for pr ostatitis follow-up. He has been treated with augmentin and was placed on Flomax. 07/09/23: Plan: Flomax q day to bid. Refer to Nephrology for proteinuria FU in 6 months [facility] Surgical History History of tonsillectomy Family History Father No problems noted. Mother No problems noted. Brother No problems noted. Sister No problems noted. Social History Housing: House Alcohol intake: current Alcohol intake frequency: a few times a month Patient Tobacco Use Status: Never used Tobacco e-Cigarette/Vaping Use: Never Used Current occupational status: unemployed Cognitive needs: No Hearing needs: No Vision needs: No Review of Systems Const All systems reviewed & are unremarkable except as noted in HPI and below Reports no additional complaints Eyes Reports no additional complaints ENT Reports no additional complaints Card Denies dyspnea Resp Denies cough and Denies dyspnea GI Reports no additional complaints Musc Reports no additional complaints Skin/Breast Denies rash and Denies unusual bruising Neuro Reports no additional complaints Psych Reports no additional complaints Endo Reports no additional complaints Rosalio/Lymph Reports no additional complaints Aller/Immun Reports no additional complaints Assessment & Plan Assessment & Plan (1) Proteinuria: Code(s): R80.9 - Proteinuria, unspecified Plan Flomax q day to bid. 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
== END 2023-07-09 14:11 | disposition home or self-care (01) ==
LOC: HO.HUSH 12:55
PROVIDERS: PCP Internal Medicine; Visit Provider Urology
DX: R80.9 Proteinuria, unspecified (principal)
CPT/HCPCS: 99214

== ENCOUNTER → 2023-07-09 12:55 | Outpatient (BNVA) | payer OTHER, SELFPAY | PROVIDERS: PCP Internal Medicine; Visit Provider Urology ==

== ENCOUNTER 2023-08-08 14:55 | Outpatient (REF) | payer OTHER, SELFPAY ==
[2023-08-08 16:52] LABS: PSA,Total (Free>4and<10) 0.56 ng/mL (0.00-4.00)
== END 2023-08-08 14:56 | disposition home or self-care (01) ==
LOC: HO.HMGCLDS 14:55
PROVIDERS: PCP Internal Medicine; Visit Provider Urology
DX: Z12.5 Encounter for screening for malignant neoplasm of prostate (principal)
CPT/HCPCS: 36415; 84153

== ENCOUNTER 2023-08-12 13:55 | Emergency (ER) | payer OTHER, SELFPAY ==
--- NOTE | ~2023-08-12 | XR_ITS ---
EXAMINATION: XR CHEST CLINICAL INFORMATION: Chest pain. COMPARISON: None available. TECHNIQUE: Frontal view of the chest was obtained. FINDINGS: The trachea is in normal anatomic position. Heart size is normal. There is a left lower lobe opacity. Pneumonia is not excluded. No pleural effusion or pneumothorax. No acute osseous abnormality. XR/XR chest 1V IMPRESSION: Left lower lobe opacity. Pneumonia is not excluded.
--- NOTE | 2023-08-12 13:59 | ECG_ITS ---
Test Reason : CP Blood Pressure : / mmHG Vent. Rate : 089 BPM Atrial Rate : 089 BPM P-R Int : 138 ms QRS Dur : 086 ms QT Int : 340 ms P-R-T Axes : 025 080 040 degrees QTc Int : 413 ms Normal sinus rhythm Nonspecific ST abnormality Abnormal ECG When compared with ECG of 17-DEC-2016 17:51, No significant change was found Referred By: Generic ED Physician Electronically Signed By:Suleiman Curran
[2023-08-12 14:02] VITALS: BP 140/98; PULSE 95; O2SAT 100
[2023-08-12 14:05] VITALS: BP 190/92; PULSE 84; RESP 18; TEMP 37.2; O2SAT 100; BMI 34.6
--- NOTE | 2023-08-12 14:08 | ED.CHESTPAIN ---
HPI - Chest Pain General Chief Complaint: Chest Pain Stated Complaint: CP SHOULDER PAIN Time Seen by Provider: 08/12/23 17:25 Source: patient History of Present Illness HPI narrative: 37 yold male with pmh of major depression and GERD presents to the ED for left sided chest pain and shoulder pain for one year. patient states no peurisy, leg swelling, calf pain, fever, chills, recent long travel, recent surgery, estorgen use, pmh of dVT, or drug use. Patient states pmh of anxiety. Related Data Previous Rx's Medication Instructions Recorded tamsulosin 0.4 mg capsule (Flomax) 0.4 mg PO BEDTIME #90 caps 03/31/23 pantoprazole 40 mg tablet,delayed 40 mg PO DAILY PRN for acid reflux 05/29/23 release #90 tabs metoprolol tartrate 100 mg tablet 100 mg PO DAILY #90 tabs 07/04/23 esomeprazole magnesium 40 mg 40 mg PO DAILY 30 days #30 caps 07/16/23 capsule,delayed release amoxicillin 875 mg-potassium 1 tab PO Q12H 5 days #10 tabs 08/13/23 clavulanate 125 mg tablet doxycycline hyclate 100 mg capsule 100 mg PO BID 7 days #14 caps 08/13/23 Allergies Allergy/AdvReac Type Severity Reaction Status Date / Time No Known Allergies Allergy Verified 07/09/23 12:57 [No Known Allergies*] Review of Systems Review of Systems: left sided chest pain and shoulder pain for one year Yes all other systems are reviewed and are negative PMFSH Past Medical History Surgical History History of tonsillectomy Family History Family History Father No problems noted. Mother No problems noted. Brother No problems noted. Sister No problems noted. Social History Social History Housing: House Alcohol intake: current Alcohol intake frequency: a few times a month Patient Tobacco Use Status: Never used Tobacco e-Cigarette/Vaping Use: Never Used Advance Directives: No Current occupational status: unemployed Cognitive needs: No Hearing needs: No Vision needs: No Physical Exam Vital Signs: Vital Signs: Last Vital Signs Temp 98.9 F 08/12/23 14:05 Pulse 86 08/12/23 17:37 Resp 18 08/12/23 14:05 BP 124/90 H 08/12/23 17:37 Pulse Ox 99 08/12/23 17:37 O2 Del Method Room Air 08/12/23 17:37 BMI result Body Mass Index 34.6 Const: General: cooperative, healthy appearing, comfortable, no acute distress, well developed, alert, awake and Physically active Orientation/consciousness: oriented to person, oriented to place, oriented to time and patient oriented x3 HEENT: Head: Yes normal to inspection, Yes No palpable skull fracture present, Yes normocephalic and Yes atraumatic Eyes: General: appearance normal, both eyes and all related structures Neck: Neck: Yes normal visual inspection, Yes full ROM, Yes no lymphadenopathy, Yes no meningeal signs, Yes trachea midline, Yes supple, No anterior neck swelling and No tender Chest: Chest palpation & inspection: normal inspection of the chest and normal palpation of entire chest wall Chest/axillae images: 1. positive for chest wall tenderness on palpation. negative for crepitus, erythema, rash, ecchymosis, or deformities. Resp: Effort & Inspection: normal respiratory effort and able to speak in complete sentences Auscultation: clear to auscultation bilaterally Cardio: Jugular venous distension: no JVD Heart sounds: S1 normal heart sound present and S2 normal heart sound present GI: Inspection: Yes normal to inspection Palpation (GI): Soft to palpation, not firm, nontender, no guarding and not rigid : General: Yes no CVA tenderness Back/Spine/Pelvis: Back: no CVA tenderness and No back tenderness Skin: General skin exam: no rashes or lesions noted, elasticity normal and turgor normal Neuro: General: oriented to person, oriented to place, oriented to time, patient oriented x3, gait normal, tone normal, moves all extremities, Normal light touch and pain sensation, no meningeal signs, no focal motor deficits and CN's II-XI intact bilaterally Extrem: General: Yes normal to inspection, Yes full ROM and Yes capillary refill normal Psych: Appearance: grossly normal, well kempt and not disheveled Course Course Course Narrative: RME: 37-year-old presents to ED for intermittent left-sided chest pain for 1 year going to left shoulder. EKG labs x-ray ordered Patient alert oriented x3. Two troponin EKG negative. Chest x-ray normal. Heart score is 0. Perc score is 0. Reevaluation(s) Reevaluation #1: Patient called and recommend to case picker antibiotics at pharmacy for treatment for pneumonia as per xray. Medical Decision Making Medical Decision Making [facility] Narrative: 37 yold male presents to the ED for left chest pain/shoulder pain for one year. Heart Score 0 and PERC Score 0. NOt suspeting PE, VT, or CHF. Patient explained worrisome signs and informed to return to the ED if he has them. Chest xray shows pneumonia. Patient discharged with antibiotics. Differential Diagnosis Differential Diagnoses: The differential diagnosis associated with the presentation includes (Pneumonia) Admission/Observation Consideration of admission/observation: Escalation of care including admission/observation considered Lab Data [facility] Lab Attestation statement: I reviewed the patient's lab results. 08/12/23 14:19 08/12/23 14:19 Labs: Lab Results 08/12/23 08/12/23 Range/Units 14:19 16:33 WBC 6.0 (4.8-10.8) X10*3/uL RBC 5.04 (4.60-5.80) X10*6/uL Hgb 15.0 (14.0-18.0) g/dl Hct 46.0 (42.0-52.0) % MCV 91.3 (80.0-98.0) fL MCH 29.8 (27.0-33.0) pg MCHC 32.6 (31.0-36.0) g/dl RDW 13.2 (11.0-16.0) % Plt Count 193 (160-400) X10*3/uL MPV 9.2 L (9.4-12.4) fL Immature Gran % (Auto) 0.5 H (0.0-0.4) % Neut % (Auto) 66.8 (45-73) % Lymph % (Auto) 23.1 (20-40) % Isabela % (Auto) 6.9 (2-11) % Eos % (Auto) 2.5 (0-4) % Baso % (Auto) 0.2 (0-2) % Lymph # (Auto) 1.4 (1.2-4.9) X10*3/uL Isabela # (Auto) 0.4 (0.1-1.2) X10*3/uL Eos # (Auto) 0.2 (0.0-0.4) X10*3/uL Baso # (Auto) 0.0 (0.0-0.2) X10*3/uL Abs Immat Gran (auto) 0.03 (0.00-0.03) X10*3/uL Absolute Neuts (auto) 4.0 (2.0-8.3) x10*3/uL Absolute Nucleated RBC 0.000 (0.0-0.012) X10*3/uL Nucleated RBC % (auto) 0.0 (0.0-0.2) /100WBC PT 11.9 (11.1-13.3) SEC INR 1.0 (0.9-1.1) APTT 33.7 (26.0-36.8) SEC Sodium 139 (135-145) mmol/L Potassium 4.6 (3.3-5.1) mmol/L Chloride 105 (96-108) mmol/L Carbon Dioxide 27 (22-29) mmol/L Anion Gap 12 (12-20) BUN 15 (9-16) mg/dL Creatinine 1.33 (0.5-1.4) mg/dL Estim Creat Clear Calc 84.6 Estimated GFR > 60 Random Glucose 105 (60-115) mg/dL Calcium 9.5 (8.4-10.2) mg/dL Total Bilirubin 0.5 (0.0-1.0) mg/dL AST 26 (5-37) U/L ALT 36 (0-40) U/L Alkaline Phosphatase 55 (39-117) U/L Troponin I High Sens < 2.7 < 2.7 (<3.5-35.0) ng/L Total Protein 7.6 (6.5-8.0) g/dL Albumin 4.3 (3.5-5.0) g/dL Independent Interpretation I performed an independent interpretation of an: Plain X-Ray Radiology Impression Discussion of test interpretation with radiology: I have reviewed the radiologist's reading. Independent Historian Clinical information obtained from an independent historian. History obtained from or confirmed by: Other (patient) External Record Review External record reviewed: Other (Prior visits.) Prescription Management I considered prescription management with: Antibiotic Discharge Plan Discharge Clinical Impression: Chest pain Patient Disposition: Home, Self-Care Instructions: Chest Pain (ED), Community Acquired Pneumonia (ED) Additional Instructions: Recommend follow-up with primary care provider. Return to the ED immediately for any chest pain, shortness of breath, leg swelling, calf pain, coughing up blood, pleurisy, sensation of throat closing, vomiting, weakness, dizziness, or any other concerning symptoms. Prescriptions: New amoxicillin-pot clavulanate 875-125 mg tablet 1 tab PO Q12H 5 Days Qty: 10 0RF doxycycline hyclate 100 mg capsule 100 mg PO BID 7 Days Qty: 14 0RF No Action pantoprazole 40 mg tablet,delayed release (DR/EC) 40 mg PO DAILY PRN (Reason: for acid reflux) Qty: 90 2RF esomeprazole magnesium 40 mg capsule,delayed release(DR/EC) 40 mg PO DAILY 30 Days Qty: 30 4RF metoprolol tartrate 100 mg tablet 100 mg PO DAILY Qty: 90 0RF tamsulosin [Flomax] 0.4 mg capsule 0.4 mg PO BEDTIME Qty: 90 3RF Stand Alone Forms: Work/School Release Discharge Date/Time: 08/12/23 18:06 Print Language: Citizen Of [place]
[2023-08-12 14:26] LABS: MANUAL DIFF FLAG NO
[2023-08-12 14:36] LABS: Basophils Percent Auto 0.2 % (0-2); Eosinophils Absolute Auto 0.2 X10*3/uL (0.0-0.4); Eosinophils Percent Auto 2.5 % (0-4); Imm Gran Abs Auto 0.03 X10*3/uL (0.00-0.03); Imm Gran Pct Auto 0.5 % (0.0-0.4); Lymphocytes Absolute Auto 1.4 X10*3/uL (1.2-4.9); Lymphocytes Percent Auto 23.1 % (20-40); Mean Corpuscular HGB Conc 32.6 g/dl (31.0-36.0); Mean Corpuscular Hemoglobin 29.8 pg (27.0-33.0); Mean Corpuscular Volume 91.3 fL (80.0-98.0); Mean Platelet Volume 9.2 fL (9.4-12.4); Monocytes Absolute Auto 0.4 X10*3/uL (0.1-1.2); Monocytes Percent Auto 6.9 % (2-11); Neutrophils Percent Auto 66.8 % (45-73); Platelet Count 193 X10*3/uL (160-400); Red Blood Count 5.04 X10*6/uL (4.60-5.80); Red Cell Distribution Width 13.2 % (11.0-16.0)
[2023-08-12 14:38] LABS: Prothrombin Time 11.9 SEC (11.1-13.3)
[2023-08-12 14:41] LABS: Partial Thromboplastin Time 33.7 SEC (26.0-36.8)
[2023-08-12 14:43] LABS: Alanine Aminotransferase 36 U/L (0-40); Albumin Level 4.3 g/dL (3.5-5.0); Alkaline Phosphatase 55 U/L (39-117); Anion Gap 12 (12-20); Aspartate Amino Transferase 26 U/L (5-37); Bilirubin Total 0.5 mg/dL (0.0-1.0); Blood Urea Nitrogen 15 mg/dL (9-16); Calcium 9.5 mg/dL (8.4-10.2); Carbon Dioxide 27 mmol/L (22-29); Chloride 105 mmol/L (96-108); Creatinine Clr Calc Pharmacy 84.6; Estimated Glomerular Filt Rate > 60; Glucose Random 105 mg/dL (60-115); Potassium 4.6 mmol/L (3.3-5.1); Sodium 139 mmol/L (135-145); Total Protein 7.6 g/dL (6.5-8.0)
[2023-08-12 14:51] LABS: Troponin-I High Sensitivity < 2.7 ng/L (<3.5-35.0)
[2023-08-12 17:07] LABS: Troponin-I High Sensitivity < 2.7 ng/L (<3.5-35.0)
[2023-08-12 17:37] VITALS: BP 124/90; PULSE 86; O2SAT 99
--- NOTE | 2023-08-12 17:37 | PC.NURSE ---
pt was reassessed by triage provider and plan is for discharge home
== END 2023-08-12 18:06 | disposition home or self-care (01) ==
PROVIDERS: Physician Assistant; Emergency Provider Emergency Medicine Emergency Medical Services; PCP Internal Medicine
DX: R07.89 Other chest pain (principal); M25.512 Pain in left shoulder; Z79.899 Other long term (current) drug therapy
CPT/HCPCS: 36415; 71045; 80053; 84484; 85025; 85610; 85730; 93005; 99283

== ENCOUNTER → 2023-08-12 13:59 | Outpatient (BNV) | payer OTHER, SELFPAY | PROVIDERS: Emergency Provider Emergency Medicine Emergency Medical Services; PCP Internal Medicine; Visit Provider Internal Medicine Cardiovascular Disease | DX: R94.31 Abnormal electrocardiogram [ECG] [EKG] (principal); R07.9 Chest pain, unspecified | CPT/HCPCS: 93010 ==

== ENCOUNTER 2023-08-26 14:34 | Outpatient (AMB) | payer OTHER, SELFPAY ==
--- NOTE | 2023-08-26 14:39 | HO.NEPHOV ---
HPI HPI Comments History of Present Illness Details 35-year-old man with history of hypertension was been on amlodipine and metoprolol was found to have proteinuria. He has been referred for evaluation proteinuria. He had an episode of prostatitis and was evaluated by Urology. The past the urine protein creatinine ratio was 0.5 and the dipstick did not reveal any significant proteinuria. He is currently on metoprolol. Amlodipine has been discontinued. Over the last few years there has been a gradual increase in serum creatinine up to 1.33 as of 2023. serum creatinine was 0.89 in 2018. [facility]LY [facility], [facility] Surgical History History of tonsillectomy Family History Father No problems noted. Mother No problems noted. Brother No problems noted. Sister No problems noted. Social History Housing: House Alcohol intake: current Alcohol intake frequency: a few times a month Patient Tobacco Use Status: Never used Tobacco e-Cigarette/Vaping Use: Never Used Current occupational status: unemployed Cognitive needs: No Hearing needs: No Vision needs: No Vital Signs 08/26/23 14:46 08/26/23 15:03 Height 5 ft 6 in Weight 212 lb BMI 34.2 BP 128/88 130/80 Blood Pressure Location Lt brachial Lt brachial Position Sitting Sitting Pulse 112 H Pulse Source Pulse Oximeter Pulse Oximetry (%) 98 Oxygen Delivery Method Room Air Physical Exam Vital Signs: Last Vital Signs Pulse 112 H 08/26/23 14:46 BP 128/88 08/26/23 14:46 Pulse Ox 98 08/26/23 14:46 Oxygen Delivery Method Room Air 08/26/23 14:46 BMI result Body Mass Index 34.2 Const General: comfortable and no acute distress Orientation/consciousness: patient oriented x3 HEENT Other: Unremarkable Head: Yes normal to inspection Neck Neck: Yes normal visual inspection Chest Chest palpation & inspection: normal inspection of the chest Resp Auscultation: clear to auscultation bilaterally Cardio Palpation: normal PMI Heart sounds: S1 normal heart sound present, S2 normal heart sound present, no gallops, no murmurs and no rubs GI Palpation (GI): Soft to palpation Back/Spine/Pelvis Other: unremarkable Skin General skin exam: no rashes or lesions noted Neuro General: patient oriented x3 Speech: No Abnormal speech present Extrem General: Yes normal to inspection Psych Mental Status: mental status grossly normal Assessment & Plan Assessment & Plan (1) Hypertension, essential: Code(s): I10 - Essential (primary) hypertension Plan 35-year-old man with hypertension has mild CKD. Serum creatinine is increased from 0.98 up to 1.3 the over the last 6 years. Renal ultrasonogram done few years ago was unremarkable. Urine sediments have been relatively bland without significant proteinuria or hematuria and the glomerular nephritis seems unlikely. Urinalysis showed a specific gravity is more than 1.030 Blood pressure is acceptable. Encouraged him to stand low-sodium diet. Maintain blood pressure less than 130/80 Increase p.o. fluid intake. I will recheck urine studies along with the input can ratio. Further workup will be based on the outcome of these results. I shall follow him along with the team Orders: Orders Creatinine Urine 2 Months I10 - Essential (primary) hypertension, N05.9 - Unspecified nephritic syndrome with unspecified morphologic changes Total Protein Urine Random 2 Months I10 - Essential (primary) hypertension UA and rflx microscopic 2 Months I10 - Essential (primary) hypertension Basic Metabolic Panel 2 Months I10 - Essential (primary) hypertension Medications: Discontinued ondansetron Discontinued Reason: Patient no longer taking 4 mg PO Q6H PRN 20 tabs 0RF nausea and vomiting pantoprazole Discontinued Reason: Patient no longer taking 40 mg PO DAILY PRN 90 tabs 2RF for acid reflux Coding Level of Care Code New Pt Level 4 (23890) Diagnoses Hypertension, essential I10 Results Reviewed Nephrology Results: Hgb 15.0 g/dl (14.0-18.0) 08/12/23 WBC 6.0 X10*3/uL (4.8-10.8) 08/12/23 Plt Count 193 X10*3/uL (160-400) 08/12/23 Sodium 139 mmol/L (135-145) 08/12/23 Potassium 4.6 mmol/L (3.3-5.1) 08/12/23 Chloride 105 mmol/L (96-108) 08/12/23 Carbon Dioxide 27 mmol/L (22-29) 08/12/23 BUN 15 mg/dL (9-16) 08/12/23 Creatinine 1.33 mg/dL (0.5-1.4) 08/12/23 Calcium 9.5 mg/dL (8.4-10.2) 08/12/23
[2023-08-26 14:46] VITALS: BP 128/88; PULSE 112; O2SAT 98; BMI 34.2
[2023-08-26 15:03] VITALS: BP 130/80
== END 2023-08-26 14:58 | disposition home or self-care (01) ==
PROVIDERS: PCP Internal Medicine; Visit Provider Internal Medicine Hypertension Specialist
DX: I10 Essential (primary) hypertension (principal)
CPT/HCPCS: 99204

== ENCOUNTER → 2023-08-26 14:34 | Outpatient (BNVA) | payer OTHER, SELFPAY | PROVIDERS: PCP Internal Medicine; Visit Provider Internal Medicine Hypertension Specialist | DX: I10 Essential (primary) hypertension (principal); N05.9 Unspecified nephritic syndrome with unspecified morphologic changes | CPT/HCPCS: 99202 ==

== ENCOUNTER 2023-09-12 12:47 | Outpatient (AMB) | payer OTHER, SELFPAY ==
[2023-09-12 13:15] VITALS: BP 124/76; PULSE 87; O2SAT 99; BMI 35.2
--- NOTE | 2023-09-12 13:15 | MHC.PC.OV ---
Vital Signs 09/12/23 13:15 Height 5 ft 6 in Weight 218 lb BMI 35.2 BP 124/76 Blood Pressure Location Rt brachial Position Sitting Pulse 87 Pulse Source Pulse Oximeter Pulse Oximetry (%) 99 Oxygen Delivery Method Room Air Intake Visit Reasons: [facility] ER pneumonia Allergies No Known Allergies [No Known Allergies*] Allergy (Verified 09/12/23 13:17) Medication List - Last Reconciled 09/12/[address] Ponce MD esomeprazole magnesium 40 mg PO DAILY 30 days metoprolol tartrate 100 mg PO DAILY tamsulosin (Flomax) 0.4 mg PO BEDTIME Tobacco use date assessed: 09/12/23 Dental Screening Dental Screen Date: 07/04/23 HPI [facility] ER pneumonia HPI Details 37-year-old gentleman came in today to be evaluated after visiting emergency room 08/12/2023 Patient have a medical history of depression, GERD, he presented to emergency room with chief complaint of left-sided chest pain And shoulder pain of 1 year duration Patient had EKG done which was negative tropes were negative Chest x-ray showed pneumonia left lower lobe He was treated with Augmentin b.i.d. for 5 days and doxycycline b.i.d. for 7 days He is feeling much better We will be repeating chest x-ray to ensure resolution of pneumonia he says he is feeling better but still feel little pressure like before, not as bad there is no fever no chills no N/V PFSH Surgical History History of tonsillectomy Family History Father No problems noted. Mother No problems noted. Brother No problems noted. Sister No problems noted. Social History Housing: House Alcohol intake: current Alcohol intake frequency: a few times a month Patient Tobacco Use Status: Never used Tobacco e-Cigarette/Vaping Use: Never Used service: No Current occupational status: unemployed Cognitive needs: No Hearing needs: No Vision needs: No Questionnaire Thrive Questionnaire Date Thrive assessed: 01/08/23 MAXIMO-7 AMB Questionnaire MAXIMO-7 Date MAXIMO - 7 assessed: 01/08/23 Source: Developed by Gisella Feng B.W. Jose Cruz, Олег Allison and colleagues, with an educational satish from [employer]. Review of Systems Const Denies chills and Denies fever(s) ENT Denies epistaxis and Denies nasal discharge Card Denies chest pain Resp Denies chest congestion, Denies cough and Denies hemoptysis GI Denies diarrhea and Denies nausea Skin/Breast Denies rash Neuro Reports no additional complaints Psych Reports no additional complaints Endo Reports no additional complaints Physical exam (Primary Care) Vital Signs: Last Vital Signs Pulse 87 09/12/23 13:15 BP 124/76 09/12/23 13:15 Pulse Ox 99 09/12/23 13:15 Oxygen Delivery Method Room Air 09/12/23 13:15 BMI result Body Mass Index 35.2 Tobacco/Smoking Status: Tobacco use Status Tobacco use date assessed 09/12/23 09/12/23 13:18 Patient Tobacco Use Status Never used Tobacco 09/12/23 13:18 e-Cigarette/Vaping Use Never Used 09/12/23 13:18 Thrive Assessment: Date of Thrive Assessment Date Thrive assessed 01/08/23 09/12/23 13:18 Const General: cooperative, comfortable and no acute distress Orientation/consciousness: patient oriented x3 HENMT Head: Yes normocephalic Eyes General: appearance normal, both eyes and all related structures Neck Neck: Yes supple Resp Effort & Inspection: normal respiratory effort, no cough and no stridor Cardio Rhythm: regular rhythm Heart sounds: S1 normal heart sound present and S2 normal heart sound present Skin General skin exam: turgor normal Neuro General: patient oriented x3, tone normal and moves all extremities Extrem Right lower extremity: no edema Left lower extremity: no edema Assessment and Plan Assessment & Plan (1) Left lower lobe pneumonia: Code(s): J18.9 - Pneumonia, unspecified organism Qualifiers: Pneumonia type: due to unspecified organism Qualified Code(s): J18.9 - Pneumonia, unspecified organism Plan 37-year-old gentleman came in today to be evaluated after visiting emergency room 08/12/2023 Patient have a medical history of depression, GERD, he presented to emergency room with chief complaint of left-sided chest pain And shoulder pain of 1 year duration Patient had EKG done which was negative tropes were negative Chest x-ray showed pneumonia left lower lobe He was treated with Augmentin b.i.d. for 5 days and doxycycline b.i.d. for 7 days He is feeling much better We will be repeating chest x-ray to ensure resolution of pneumonia he says he is feeling better but still feel little pressure like before, not as bad there is no fever no chills no N/V Orders: Orders XR chest 2V Today J18.9 - Pneumonia, unspecified organism Coding Level of Care Code Est Pt Level 4 (76482) Diagnoses Pneumonia of left lower lobe due to infectious organism J18.9 Pneumonia type: due to unspecified organism
== END 2023-09-12 14:03 | disposition home or self-care (01) ==
PROVIDERS: PCP Internal Medicine; Visit Provider Internal Medicine
DX: J18.9 Pneumonia, unspecified organism (principal)
CPT/HCPCS: 99214

== ENCOUNTER 2023-09-12 13:37 | Outpatient (REF) | payer OTHER, SELFPAY ==
--- NOTE | ~2023-09-12 | XR_ITS ---
EXAMINATION: XR CHEST CLINICAL INFORMATION: Pneumonia. COMPARISON: None available. TECHNIQUE: 2 views of the chest were obtained. FINDINGS: The lungs are well expanded. No focal consolidation. No pleural effusion. Cardiac silhouette is within normal limits. XR/XR chest 2V IMPRESSION: No acute abnormality.
== END 2023-09-12 13:38 | disposition home or self-care (01) ==
LOC: HO.HMGCX 13:37
PROVIDERS: PCP Internal Medicine; Visit Provider Internal Medicine
DX: J18.9 Pneumonia, unspecified organism (principal)
CPT/HCPCS: 71046

== ENCOUNTER 2023-09-23 12:02 | Emergency (ER) | payer OTHER, SELFPAY ==
--- NOTE | ~2023-09-23 | CT_ITS ---
EXAMINATION: CT ABDOMEN AND PELVIS WITHOUT CONTRAST CLINICAL INFORMATION: Lower abdominal pain and diarrhea. COMPARISON: None available. TECHNIQUE: Multidetector volumetric imaging was performed from the superior aspect of the liver through the pubic symphysis. Sagittal and coronal reformatted images were obtained on the technologist's workstation. This CT examination was performed using dose optimization techniques as appropriate, variously including the following: *Automated exposure control. *Adjustment of mA and/or kV according to patient size (this includes techniques or standardized protocols for targeted exams where dose is matched to indication/reason for exam; i.e. extremities or head). *Use of iterative reconstruction technique. DLP: 508 mGy-cm FINDINGS: LUNG BASES: The visualized lung bases are unremarkable. LIVER, GALLBLADDER, AND BILIARY TREE: The liver is normal in size, shape, and attenuation. No focal hepatic lesion or biliary ductal dilatation is present. The gallbladder is unremarkable with no evidence of radiopaque gallstones, gallbladder wall thickening, or obvious pericholecystic inflammatory changes. PANCREAS: Unremarkable. SPLEEN: There is splenomegaly at 14.3 cm. ADRENAL GLANDS: Unremarkable. KIDNEYS AND URETERS: The kidneys are normal in size, shape, and attenuation. No hydronephrosis, hydroureter, or calculi seen. No perinephric stranding. BLADDER: Unremarkable. GASTROINTESTINAL TRACT: The small and large bowel are unremarkable. The appendix is unremarkable. ABDOMINAL WALL: No significant hernia is appreciated. LYMPH NODES: No retroperitoneal lymphadenopathy. VASCULAR: Unremarkable. PELVIC VISCERA: Minimally prominent prostate. Seminal vesicles appear normal. OSSEOUS STRUCTURES: Unremarkable. CT/CT abdomen pelvis wo IV con IMPRESSION: 1. A cause for the patient's lower abdominal pain and diarrhea has not been found. 2. Incidental note made of mild splenomegaly. Fleischner guidelines were followed.
[2023-09-23 12:53] VITALS: BP 158/99; PULSE 117; RESP 18; TEMP 36.8; O2SAT 98; BMI 26.8
--- NOTE | 2023-09-23 12:53 | ED.GIBLEED ---
HPI - GI Bleed General Chief complaint: GI Bleed Stated complaint: Blood in stool Time Seen by Provider: 09/23/23 16:35 Source: patient, RN notes reviewed and old records reviewed Mode of arrival: ambulatory Limitations: no limitations History of Present Illness HPI Narrative: 37-year-old male with past medical history significant for MDD, hypertension, heard, prostatitis, erectile dysfunction, proteinuria presents to the ED today for evaluation of diarrhea x2 days. Additionally endorses mild lower abdominal discomfort which began this morning. Symptoms began after having dinner with his family 2 nights ago. No other family members are having diarrhea. Admits to quarter size amount of blood in his stool yesterday. No blood on toilet paper. Not on anticoagulation. Denies known sick contacts. Denies recent travel. Denies recent antibiotics. Denies fever, chills, chest pain or shortness of breath, nausea or vomiting, melena, dysuria, hematuria, flank pain. Related Data Previous Rx's ?Medication ?Instructions ?Recorded tamsulosin 0.4 mg capsule (Flomax) 0.4 mg PO BEDTIME #90 caps 03/31/23 metoprolol tartrate 100 mg tablet 100 mg PO DAILY #90 tabs 07/04/23 esomeprazole magnesium 40 mg 40 mg PO DAILY 30 days #30 caps 07/16/23 capsule,delayed release Allergies Allergy/AdvReac Type Severity Reaction Status Date / Time No Known Allergies Allergy Verified 09/23/23 12:56 [No Known Allergies*] Review of Systems Review of Systems: Constitutional: No fever, chills, fatigue, night sweats, weight changes ENT/Mouth: No ear pain, hearing loss, nasal congestion, sinus pain, rhinorrhea, sore throat Eyes: No eye pain, swelling, redness, vision changes, discharge Cardio: No chest pain, palpitations, WAHL, orthopnea, peripheral edema Pulm: No SOB, cough, sputum, wheezing, dyspnea, hemoptysis GI: No nausea, vomiting, hematemesis, diarrhea, constipation, melena, + hematochezia, lower abdominal discomfort : No irregular bleeding, dysuria, frequency, urgency, hesitancy, hematuria, flank pain, urinary flow changes, urinary incontinence or retention MSK: No back pain, neck pain, joint pain, myalgias Skin: No lesions, rashes Neuro: No weakness, numbness, paresthesias, LOC, dizziness, headache Psych: No anxiety/panic, depression, SI/HI, AH/VH All other systems reviewed and are negative. FOR[facility]LY [facility] Past Medical History Attestation statement: The following information was validated with the patient. Source: old records reviewed and nursing notes reviewed Surgical History History of tonsillectomy Family History Family History Father No problems noted. Mother No problems noted. Brother No problems noted. Sister No problems noted. Social History Social History Housing: House Alcohol intake: current Alcohol intake frequency: a few times a month Patient Tobacco Use Status: Never used Tobacco e-Cigarette/Vaping Use: Never Used Advance Directives: No Advance Directives Information Provided: No service: No Current occupational status: unemployed Cognitive needs: No Hearing needs: No Vision needs: No Physical Exam Vital Signs: Vital Signs: Last Vital Signs Temp 98.3 F 09/23/23 18:02 Pulse 117 H 09/23/23 18:02 Resp 18 09/23/23 18:02 BP 158/99 H 09/23/23 18:02 Pulse Ox 98 09/23/23 18:02 O2 Del Method Room Air 09/23/23 18:02 BMI result Body Mass Index 26.8 Patient hypertensive and tachycardic Const: General: cooperative, healthy appearing, comfortable and no acute distress Orientation/consciousness: patient oriented x3 Limitations: no limitations HEENT: Head: Yes normal to inspection, Yes No palpable skull fracture present, Yes normocephalic and Yes atraumatic Eyes: General: appearance normal, both eyes and all related structures Conjunctivae: conjunctivae normal Sclerae: sclerae normal Pupils: Equal, round and reactive pupils present Neck: Neck: Yes normal visual inspection, Yes full ROM and Yes no lymphadenopathy Resp: Effort & Inspection: normal respiratory effort and able to speak in complete sentences Auscultation: clear to auscultation bilaterally Cardio: Rate: regular rate Rhythm: regular rhythm GI: Other: + abdomen is soft, nondistended, nontender to palpation, no rebound tenderness or guarding, normoactive bowel sounds x4. Rectal exam performed with Janny RN present in room to upper cutter machine. Normal rectal sphincter tone. No external masses or lesions. No palpable stool in rectal vault. Stool is normal in appearance. Guac negative. Inspection: Yes normal to inspection : General: Yes no CVA tenderness Back/Spine/Pelvis: Back: no CVA tenderness Skin: General skin exam: no rashes or lesions noted Neuro: General: patient oriented x3 and gait normal Cranial nerves: Yes Equal, round and reactive pupils present Extrem: General: Yes normal to inspection Course Course Course Narrative: This is a Rapid Medical Examination (RME) performed by Juliann Escoto PA-C in triage. Full HPI, ROS, assessment and treatment plan per primary provider in the Main ED. 37 yo male presenting to the ED for evaluation of BRBPR x5 in the last 2 days, last episode was yesterday. started out nonbloody then developed blood. rectal pain but no abdominal pain. vomited once 4 days ago. no fevers. in triage VS are stable, patient awake, alert no distress. abd is soft and nontender. Plan: labs, rectal exam Reevaluation(s) Reevaluation #1: 1750-- CBC without leukocytosis or left shift. No anemia. H&H stable. Chemistry without acute electrolyte abnormality requiring intervention. Normal renal and liver function. Urine without infection or blood. OBS negative > GI bleed unlikely. COVID and influenza when negative. > patient now requesting to be discharged. He states that he only has a ride home until 6:00 p.m.. I informed him that his CT scan results are not back yet. He states that he does not want to wait for these results. I discussed risks of leaving the ED without receiving CT results and further management including continued pain, sepsis/infection and even . He verbalizes his understanding of these risks. He will be signing out AMA. Medical Decision Making Medical Decision Making [facility] Narrative: 37-year-old male with past medical history significant for MDD, hypertension, heard, prostatitis, erectile dysfunction, proteinuria presents to the ED today for evaluation of diarrhea x2 days. Patient hypertensive and tachycardic. On exam, he is nontoxic-appearing and in no acute distress. No pallor. Skin warm dry and intact. Abdomen soft, nondistended, nontender to palpation, no rebound tenderness or guarding. Normoactive bowel sounds x4. On rectal exam, Normal rectal sphincter tone. No external masses or lesions. No palpable stool in rectal vault. Stool is normal in appearance. Guac negative. Differential diagnosis includes gastroenteritis, gastritis, diverticulosis, diverticulitis, IBS, IBD. Low suspicion for appendicitis, pancreatitis, cholecystitis, ischemic bowel. Plan for basic labs, OBS, serology and CT scan abdomen/pelvis. Differential Diagnosis Differential Diagnoses: The differential diagnosis associated with the presentation includes As above Admission/Observation Consideration of admission/observation: Escalation of care including admission/observation considered Not indicated Lab Data MDM Lab Attestation statement: I reviewed the patient's lab results. As above 09/23/23 13:07 09/23/23 13:07 Labs: Lab Results 09/23/23 09/23/23 09/23/23 Range/Units 13:07 13:38 17:09 WBC 7.6 (4.8-10.8) X10*3/uL RBC 4.87 (4.60-5.80) X10*6/uL Hgb 14.7 (14.0-18.0) g/dl Hct 42.6 (42.0-52.0) % MCV 87.5 (80.0-98.0) fL MCH 30.2 (27.0-33.0) pg MCHC 34.5 (31.0-36.0) g/dl RDW 12.8 (11.0-16.0) % Plt Count 191 (160-400) X10*3/uL MPV 9.8 (9.4-12.4) fL Immature Gran % (Auto) 0.4 (0.0-0.4) % Neut % (Auto) 74.4 H (45-73) % Lymph % (Auto) 14.3 L (20-40) % [place] % (Auto) 9.5 (2-11) % Eos % (Auto) 1.1 (0-4) % Baso % (Auto) 0.3 (0-2) % Lymph # (Auto) 1.1 L (1.2-4.9) X10*3/uL [place] # (Auto) 0.7 (0.1-1.2) X10*3/uL Eos # (Auto) 0.1 (0.0-0.4) X10*3/uL Baso # (Auto) 0.0 (0.0-0.2) X10*3/uL Abs Immat Gran (auto) 0.03 (0.00-0.03) X10*3/uL Absolute Neuts (auto) 5.7 (2.0-8.3) x10*3/uL Absolute Nucleated RBC 0.000 (0.0-0.012) X10*3/uL Nucleated RBC % (auto) 0.0 (0.0-0.2) /100WBC Sodium 139 (135-145) mmol/L Potassium 4.0 (3.3-5.1) mmol/L Chloride 101 (96-108) mmol/L Carbon Dioxide 24 (22-29) mmol/L Anion Gap 18 (12-20) BUN 9 (9-16) mg/dL Creatinine 1.13 (0.5-1.4) mg/dL Estim Creat Clear Calc 106.0 Estimated GFR > 60 Random Glucose 101 (60-115) mg/dL Calcium 9.7 (8.4-10.2) mg/dL Magnesium 1.9 (1.6-2.6) mg/dL Total Bilirubin 0.5 (0.0-1.0) mg/dL Direct Bilirubin 0.2 (0.0-0.5) mg/dL AST 15 (5-37) U/L ALT 23 (0-40) U/L Alkaline Phosphatase 40 (39-117) U/L Total Protein 7.4 (6.5-8.0) g/dL Albumin 4.1 (3.5-5.0) g/dL Urine Color Dark Yellow Urine Appearance Clear Urine pH 5.5 (5.0-9.0) Ur Specific [place] 1.025 (1.005-1.025) Urine Protein 30 (1+) H (Neg-Trace) mg/dL Urine Glucose (UA) Negative (Negative) mg/dL Urine Ketones >=160 (Negative) mg/dL Urine Blood Negative (Negative) Urine Nitrite Negative (Negative) Ur Leukocyte Esterase Negative (Negative) Urine RBC 0-2 (0-2) /HPF Urine WBC 0-5 (0-5) /HPF Ur Squamous Epith Cells 0-2 (0-2) /HPF Urine Bacteria None Seen (None Seen) Hyaline Casts 11-20 (0-2) /LPF Stool Occult Blood NEGATIVE (NEGATIVE) COVID-19 (RAFAEL) (Negative) COVID-19 Clin Com Influenza Type A (ARMAND) (Negative) Influenza Type B (ARMAND) (Negative) Influenza A & B Note 09/23/23 Range/Units 17:51 WBC (4.8-10.8) X10*3/uL RBC (4.60-5.80) X10*6/uL Hgb (14.0-18.0) g/dl Hct (42.0-52.0) % MCV (80.0-98.0) fL MCH (27.0-33.0) pg MCHC (31.0-36.0) g/dl RDW (11.0-16.0) % Plt Count (160-400) X10*3/uL MPV (9.4-12.4) fL Immature Gran % (Auto) (0.0-0.4) % Neut % (Auto) (45-73) % Lymph % (Auto) (20-40) % [place] % (Auto) (2-11) % Eos % (Auto) (0-4) % Baso % (Auto) (0-2) % Lymph # (Auto) (1.2-4.9) X10*3/uL [place] # (Auto) (0.1-1.2) X10*3/uL Eos # (Auto) (0.0-0.4) X10*3/uL Baso # (Auto) (0.0-0.2) X10*3/uL Abs Immat Gran (auto) (0.00-0.03) X10*3/uL Absolute Neuts (auto) (2.0-8.3) x10*3/uL Absolute Nucleated RBC (0.0-0.012) X10*3/uL Nucleated RBC % (auto) (0.0-0.2) /100WBC Sodium (135-145) mmol/L Potassium (3.3-5.1) mmol/L Chloride (96-108) mmol/L Carbon Dioxide (22-29) mmol/L Anion Gap (12-20) BUN (9-16) mg/dL Creatinine (0.5-1.4) mg/dL Estim Creat Clear Calc Estimated GFR Random Glucose (60-115) mg/dL Calcium (8.4-10.2) mg/dL Magnesium (1.6-2.6) mg/dL Total Bilirubin (0.0-1.0) mg/dL Direct Bilirubin (0.0-0.5) mg/dL AST (5-37) U/L ALT (0-40) U/L Alkaline Phosphatase (39-117) U/L Total Protein (6.5-8.0) g/dL Albumin (3.5-5.0) g/dL Urine Color Urine Appearance Urine pH (5.0-9.0) Ur Specific [place] (1.005-1.025) Urine Protein (Neg-Trace) mg/dL Urine Glucose (UA) (Negative) mg/dL Urine Ketones (Negative) mg/dL Urine Blood (Negative) Urine Nitrite (Negative) Ur Leukocyte Esterase (Negative) Urine RBC (0-2) /HPF Urine WBC (0-5) /HPF Ur Squamous Epith Cells (0-2) /HPF Urine Bacteria (None Seen) Hyaline Casts (0-2) /LPF Stool Occult Blood (NEGATIVE) COVID-19 (RAFAEL) Negative (Negative) COVID-19 Clin Com See Note Influenza Type A (ARMAND) Negative (Negative) Influenza Type B (ARMAND) Negative (Negative) Influenza A & B Note See Note Independent Interpretation I performed an independent interpretation of an: CT Scan Radiology Impression Discussion of test interpretation with radiology: I have reviewed the radiologist's reading. Prescription Management I considered prescription management with: Pain Medication Social Determinants Patient?s care significantly limited by Social Determinants of Health including: Other Social Determinant of Health Procedures Stool Hemoccult Procedural Steps Taken: stool placed in appropriate test area Hemoccult result: negative Critical Care Time Critical Care Time Critical Care Time: No Discharge Plan Discharge Clinical Impression: Diarrhea Patient Disposition: Home, Self-Care Instructions: Acute Diarrhea (ED) Additional Instructions: Your lab work today is reassuring. Your urine is negative for infection. Your stool is negative for blood. Your choosing to leave the ED without completing workup, including CT scan and COVID/flu testing. Return to the ED with new or worsening symptoms. In the case of an emergency call 911. Prescriptions: No Action esomeprazole magnesium 40 mg capsule,delayed release(DR/EC) 40 mg PO DAILY 30 Days Qty: 30 4RF metoprolol tartrate 100 mg tablet 100 mg PO DAILY Qty: 90 0RF tamsulosin [Flomax] 0.4 mg capsule 0.4 mg PO BEDTIME Qty: 90 3RF Stand Alone Forms: Against Medical Advice Interventions: ED Discharge Assessment Last Done: 09/23/23 18:02 Discharge Date/Time: 09/23/23 18:03 Print Language: Tunisian
[2023-09-23 13:15] LABS: MANUAL DIFF FLAG NO
[2023-09-23 13:17] LABS: Basophils Percent Auto 0.3 % (0-2); Eosinophils Absolute Auto 0.1 X10*3/uL (0.0-0.4); Eosinophils Percent Auto 1.1 % (0-4); Hematocrit 42.6 % (42.0-52.0); Hemoglobin 14.7 g/dl (14.0-18.0); Imm Gran Abs Auto 0.03 X10*3/uL (0.00-0.03); Imm Gran Pct Auto 0.4 % (0.0-0.4); Lymphocytes Absolute Auto 1.1 X10*3/uL (1.2-4.9); Lymphocytes Percent Auto 14.3 % (20-40); Mean Corpuscular HGB Conc 34.5 g/dl (31.0-36.0); Mean Corpuscular Hemoglobin 30.2 pg (27.0-33.0); Mean Corpuscular Volume 87.5 fL (80.0-98.0); Mean Platelet Volume 9.8 fL (9.4-12.4); Monocytes Absolute Auto 0.7 X10*3/uL (0.1-1.2); Monocytes Percent Auto 9.5 % (2-11); Neutrophils Absolute Auto 5.7 x10*3/uL (2.0-8.3); Neutrophils Percent Auto 74.4 % (45-73); Platelet Count 191 X10*3/uL (160-400); Red Blood Count 4.87 X10*6/uL (4.60-5.80); Red Cell Distribution Width 12.8 % (11.0-16.0); White Blood Count 7.6 X10*3/uL (4.8-10.8)
[2023-09-23 13:33] LABS: Alanine Aminotransferase 23 U/L (0-40); Albumin Level 4.1 g/dL (3.5-5.0); Alkaline Phosphatase 40 U/L (39-117); Anion Gap 18 (12-20); Aspartate Amino Transferase 15 U/L (5-37); Bilirubin Direct 0.2 mg/dL (0.0-0.5); Bilirubin Total 0.5 mg/dL (0.0-1.0); Blood Urea Nitrogen 9 mg/dL (9-16); Calcium 9.7 mg/dL (8.4-10.2); Carbon Dioxide 24 mmol/L (22-29); Chloride 101 mmol/L (96-108); Estimated Glomerular Filt Rate > 60; Glucose Random 101 mg/dL (60-115); Magnesium 1.9 mg/dL (1.6-2.6); Sodium 139 mmol/L (135-145); Total Protein 7.4 g/dL (6.5-8.0)
[2023-09-23 13:46] LABS: Appearance Urine Clear; Color Urine Dark Yellow; Glucose Urine UA Negative (Negative); Leukocyte Esterase Urine Negative (Negative); Nitrite Urine Negative (Negative); PH 5.5 (5.0-9.0); Specific Gravity - Urine 1.025 (1.005-1.025); UMIC TRIGGER UACC YES; Urine Blood Negative (Negative); Urine Ketones >=160 mg/dL (Negative); Urine Protein 30 (1+) mg/dL (Neg-Trace)
[2023-09-23 13:56] LABS: Bacteria Urine None Seen (None Seen); RBC Urine 0-2 /HPF (0-2); Squamous Epithelial Cell Urine 0-2 /HPF (0-2); WBC Urine 0-5 /HPF (0-5)
[2023-09-23 17:15] LABS: OBS Int Ctl Valid YES; OBS1 NEGATIVE (NEGATIVE)
[2023-09-23 18:02] VITALS: BP 158/99; PULSE 117; RESP 18; TEMP 36.8; O2SAT 98
[2023-09-23 18:29] LABS: COVID-19 Test Negative (Negative); IDNOW Serial# 152EDE1D
[2023-09-23 18:30] LABS: IDNOW Serial# 58CA691E; Influenza A Negative (Negative); Influenza B2 Negative (Negative)
== END 2023-09-23 18:03 | disposition home or self-care (01) ==
PROVIDERS: Physician Assistant; Physician Assistant Medical; Emergency Provider Emergency Medicine; PCP Internal Medicine
DX: R19.7 Diarrhea, unspecified (principal); I10 Essential (primary) hypertension; Z11.52 Encounter for screening for COVID-19
CPT/HCPCS: 36415; 74176; 80048; 80076; 81001; 82272; 83735; 85025; 87502; 87635; 99284

== ENCOUNTER 2023-10-02 10:53 | Emergency (ER) | payer OTHER, SELFPAY ==
--- NOTE | ~2023-10-02 | XR_ITS ---
EXAMINATION: XR CHEST CLINICAL INFORMATION: Chest pain COMPARISON: 09/12/2023 TECHNIQUE: Frontal view of the chest was obtained. FINDINGS: No significant abnormality is noted involving the heart, lungs, mediastinum, bony thorax or soft tissues. XR/XR chest 1V IMPRESSION: Unremarkable examination.
--- NOTE | 2023-10-02 11:24 | ECG_ITS ---
Test Reason : CHEST PAIN Blood Pressure : / mmHG Vent. Rate : 096 BPM Atrial Rate : 096 BPM P-R Int : 150 ms QRS Dur : 084 ms QT Int : 342 ms P-R-T Axes : 048 085 040 degrees QTc Int : 432 ms Normal sinus rhythm Normal ECG When compared with ECG of 12-AUG-2023 14:13, No significant change was found Referred By: Irina Eli Electronically Signed By:KATE MOTT MD
[2023-10-02 11:46] VITALS: BP 142/83; PULSE 94; RESP 18; TEMP 36.8; O2SAT 98; BMI 26.8
[2023-10-02 12:26] LABS: MANUAL DIFF FLAG NO
[2023-10-02 12:27] LABS: Basophils Percent Auto 0.1 % (0-2); Eosinophils Absolute Auto 0.1 X10*3/uL (0.0-0.4); Eosinophils Percent Auto 1.5 % (0-4); Hematocrit 43.3 % (42.0-52.0); Hemoglobin 14.3 g/dl (14.0-18.0); Imm Gran Abs Auto 0.04 X10*3/uL (0.00-0.03); Imm Gran Pct Auto 0.5 % (0.0-0.4); Lymphocytes Absolute Auto 1.3 X10*3/uL (1.2-4.9); Lymphocytes Percent Auto 16.9 % (20-40); Mean Corpuscular Hemoglobin 29.9 pg (27.0-33.0); Mean Corpuscular Volume 90.6 fL (80.0-98.0); Mean Platelet Volume 9.1 fL (9.4-12.4); Monocytes Absolute Auto 0.5 X10*3/uL (0.1-1.2); Monocytes Percent Auto 6.7 % (2-11); Neutrophils Absolute Auto 5.5 x10*3/uL (2.0-8.3); Neutrophils Percent Auto 74.3 % (45-73); Platelet Count 226 X10*3/uL (160-400); Red Blood Count 4.78 X10*6/uL (4.60-5.80); Red Cell Distribution Width 13.3 % (11.0-16.0); White Blood Count 7.4 X10*3/uL (4.8-10.8)
[2023-10-02 12:43] LABS: Alanine Aminotransferase 43 U/L (0-40); Albumin Level 3.9 g/dL (3.5-5.0); Alkaline Phosphatase 40 U/L (39-117); Anion Gap 12 (12-20); Aspartate Amino Transferase 33 U/L (5-37); Bilirubin Total 0.3 mg/dL (0.0-1.0); Blood Urea Nitrogen 11 mg/dL (9-16); Calcium 9.2 mg/dL (8.4-10.2); Carbon Dioxide 27 mmol/L (22-29); Chloride 107 mmol/L (96-108); Creatinine Clr Calc Pharmacy 101.5; Estimated Glomerular Filt Rate > 60; Glucose Random 109 mg/dL (60-115); Potassium 4.3 mmol/L (3.3-5.1); Sodium 142 mmol/L (135-145)
[2023-10-02 12:48] LABS: Troponin-I High Sensitivity < 2.7 ng/L (<3.5-35.0)
--- NOTE | 2023-10-02 12:49 | ED_ITS ---
HPI - Chest Pain General Chief Complaint: Chest Pain Stated Complaint: CP,WORSE W/PRESSURE,H/O ENL SPLEEN PER EMS Time Seen by Provider: 10/02/23 11:48 Source: patient Mode of arrival: ambulatory History of Present Illness HPI narrative: 37-year-old male who reports intermittent sharp chest pain for over a year, he has been evaluated in the outpatient setting under the supervision of his primary care doctor and nothing has been found . He denies any associated shortness of breath/dizziness/cough but reports that it happened again last night and he has concerns because he was recently seen here and was identified as having an enlarged spleen. Patient denies any family history of early cardiac or any prior personal history of cardiac abnormalities. Related Data Previous Rx's ?Medication ?Instructions ?Recorded tamsulosin 0.4 mg capsule (Flomax) 0.4 mg PO BEDTIME #90 caps 03/31/23 metoprolol tartrate 100 mg tablet 100 mg PO DAILY #90 tabs 07/04/23 esomeprazole magnesium 40 mg 40 mg PO DAILY 30 days #30 caps 07/16/23 capsule,delayed release Allergies Allergy/AdvReac Type Severity Reaction Status Date / Time No Known Allergies Allergy Verified 10/02/23 11:48 [No Known Allergies*] Review of Systems 2 Review of Systems: Pertinent positives and negatives as stated in HPI [facility] Past Medical History Source: nursing notes reviewed Surgical History History of tonsillectomy Family History Family History Father No problems noted. Mother No problems noted. Brother No problems noted. Sister No problems noted. Social History Social History Housing: House Alcohol intake: current Alcohol intake frequency: a few times a month Patient Tobacco Use Status: Never used Tobacco e-Cigarette/Vaping Use: Never Used Advance Directives: No Advance Directives Information Provided: Yes Do you have a plan to hurt others: No Plan service: No Current occupational status: unemployed Cognitive needs: No Hearing needs: No Vision needs: No Physical Exam 2 Vital Signs: Vital Signs: Last Vital Signs Temp 98.3 F 10/02/23 11:46 Pulse 94 10/02/23 11:46 Resp 18 10/02/23 11:46 BP 142/83 H 10/02/23 11:46 Pulse Ox 98 10/02/23 11:46 O2 Del Method Room Air 10/02/23 11:46 BMI result Body Mass Index 26.8 VITAL SIGNS: Reviewed. GENERAL: Well developed, well nourished, in no acute distress. HEAD: Normocephalic/atraumatic EYES: PERRLA, EOMI LUNGS: Normal breath sounds. No adventitious sounds or accessory muscle use. SpO2<98>; CHEST WALL: Reproducible chest wall pain CARDIOVASCULAR: Regular rate and rhythm without noted murmurs ABDOMEN: Soft, non-tender, non-distended with bowel sounds. MUSCULOSKELETAL: No tenderness, deformities, or effusions noted on gross inspection. EXTREMITIES: No cyanosis, clubbing or edema. SKIN: Inspection of the skin reveals no rashes NEUROLOGIC: Alert and oriented x 4. Strength and sensation to light touch were grossly intact x 4. Medical Decision Making Medical Decision Making [facility] Narrative: 37-year-old male with history and clinical presentation consistent with most likely MSK/costochondritis/no clinical suspicion for ACS or pneumonia and patient is concerned regarding the mild splenomegaly I highly recommend that he follow-up with his primary care doctor. I reviewed all investigations and hematologic indices are negative for leukocytosis/anemia/thrombocytopenia. Chemistry indices are grossly within normal limits, there is no LORRAINE/electrolyte or liver enzyme derangements. High sensitivity troponin is undetectable. EKG is otherwise unremarkable. Viral testing negative for influenza/RSV/COVID-19. Chest x-ray negative for infiltrate or venous congestion otherwise my interpretation is in agreement with radiology's impression. My interpretation is that patient has costochondritis but he was recommended to follow-up with his primary care doctor. Differential Diagnosis Differential Diagnoses: The differential diagnosis associated with the presentation includes Please see the discussion above Admission/Observation Consideration of admission/observation: Escalation of care including admission/observation considered Please see the discussion above Lab Data [facility] Lab Attestation statement: I reviewed the patient's lab results. Please see the discussion above all 10/02/23 12:12 10/02/23 12:12 Labs: Lab Results 10/02/23 Range/Units 12:12 WBC 7.4 (4.8-10.8) X10*3/uL RBC 4.78 (4.60-5.80) X10*6/uL Hgb 14.3 (14.0-18.0) g/dl Hct 43.3 (42.0-52.0) % MCV 90.6 (80.0-98.0) fL MCH 29.9 (27.0-33.0) pg MCHC 33.0 (31.0-36.0) g/dl RDW 13.3 (11.0-16.0) % Plt Count 226 (160-400) X10*3/uL MPV 9.1 L (9.4-12.4) fL Immature Gran % (Auto) 0.5 H (0.0-0.4) % Neut % (Auto) 74.3 H (45-73) % Lymph % (Auto) 16.9 L (20-40) % [place] % (Auto) 6.7 (2-11) % Eos % (Auto) 1.5 (0-4) % Baso % (Auto) 0.1 (0-2) % Lymph # (Auto) 1.3 (1.2-4.9) X10*3/uL [place] # (Auto) 0.5 (0.1-1.2) X10*3/uL Eos # (Auto) 0.1 (0.0-0.4) X10*3/uL Baso # (Auto) 0.0 (0.0-0.2) X10*3/uL Abs Immat Gran (auto) 0.04 H (0.00-0.03) X10*3/uL Absolute Neuts (auto) 5.5 (2.0-8.3) x10*3/uL Absolute Nucleated RBC 0.000 (0.0-0.012) X10*3/uL Nucleated RBC % (auto) 0.0 (0.0-0.2) /100WBC Sodium 142 (135-145) mmol/L Potassium 4.3 (3.3-5.1) mmol/L Chloride 107 (96-108) mmol/L Carbon Dioxide 27 (22-29) mmol/L Anion Gap 12 (12-20) BUN 11 (9-16) mg/dL Creatinine 1.18 (0.5-1.4) mg/dL Estim Creat Clear Calc 101.5 Estimated GFR > 60 Random Glucose 109 (60-115) mg/dL Calcium 9.2 (8.4-10.2) mg/dL Magnesium 2.0 (1.6-2.6) mg/dL Total Bilirubin 0.3 (0.0-1.0) mg/dL AST 33 (5-37) U/L ALT 43 H (0-40) U/L Alkaline Phosphatase 40 (39-117) U/L Troponin I High Sens < 2.7 (<3.5-35.0) ng/L Total Protein 7.0 (6.5-8.0) g/dL Albumin 3.9 (3.5-5.0) g/dL Influenza Type A (PCR) NEGATIVE (Negative) Influenza Type B (PCR) NEGATIVE (Negative) RSV RNA Qual (PCR) NEGATIVE (Negative) SARS-CoV-2 RNA (RT-PCR) NEGATIVE (Negative) Independent Interpretation I performed an independent interpretation of an: EKG Interpretation: Normal sinus rhythm, HR-96, no STEMI, MA/QRS/QTC is within normal limits and comparison EKG without acute changes. Radiology Impression Discussion of test interpretation with radiology: I have reviewed the radiologist's reading. Radiologist Impression: Please see the discussion above External Record Review External record reviewed: Outpatient record, Prior outpatient labs and Prior outpatient radiology Chronic Conditions Patient?s care impacted by: Hypertension Critical Care Time Critical Care Time Critical Care Time: Yes Total Critical Care Time: 45 Attestation: I personally attest to this time spent taking care of the patient. Discharge Plan Discharge Clinical Impression: Chest wall pain, Acute costochondritis Patient Disposition: Home, Self-Care Instructions: Chest Wall Pain (ED), Costochondritis (ED) Additional Instructions: 1. Recommend [id number] Tylenol/ibuprofen as needed for chest wall pain/costochondritis. 2. Recommend follow-up with your primary care doctor for re-evaluation further outpatient management. Return to the ER for any worsening symptoms. Prescriptions: No Action esomeprazole magnesium 40 mg capsule,delayed release(DR/EC) 40 mg PO DAILY 30 Days Qty: 30 4RF metoprolol tartrate 100 mg tablet 100 mg PO DAILY Qty: 90 0RF tamsulosin [Flomax] 0.4 mg capsule 0.4 mg PO BEDTIME Qty: 90 3RF Referrals: Lane Ponce MD [Primary Care Provider] - Print Language: Danish
[2023-10-02 13:05] LABS: Influenza A PCR NEGATIVE (Negative); Influenza B PCR NEGATIVE (Negative); Resp Syncy Virus RNA Qual PCR NEGATIVE (Negative); SARS COV2 PCR INHOUSE NEGATIVE (Negative)
[2023-10-02 14:05] VITALS: BP 142/83; PULSE 94; RESP 18; TEMP 36.8; O2SAT 98
[2023-10-02] MEDS: Acetaminophen 325 MG TABLET 975 MG PO (14:10)
[2023-10-02] MEDS: Ibuprofen 400 MG TABLET PO (14:19)
== END 2023-10-02 14:05 | disposition home or self-care (01) ==
PROVIDERS: Physician Assistant Medical; Emergency Provider Student in an Organized Health Care Education/Training Program; PCP Internal Medicine
DX: M94.0 Chondrocostal junction syndrome [Tietze] (principal)
CPT/HCPCS: 0241U; 71045; 80053; 83735; 84484; 85025; 93005; 99283

== ENCOUNTER → 2023-10-02 11:24 | Outpatient (BNV) | payer OTHER, SELFPAY | PROVIDERS: Emergency Provider Student in an Organized Health Care Education/Training Program; PCP Internal Medicine; Visit Provider Internal Medicine Cardiovascular Disease | DX: R07.9 Chest pain, unspecified (principal) | CPT/HCPCS: 93010 ==

== ENCOUNTER 2023-10-15 11:28 | Outpatient (AMB) | payer OTHER, SELFPAY ==
[2023-10-15 11:34] VITALS: BP 118/86; PULSE 93; O2SAT 99; BMI 26.5
--- NOTE | 2023-10-15 11:34 | MHC.PC.OV ---
Vital Signs 10/15/23 11:34 Height 6 ft 2 in Weight 206 lb 5 oz BMI 26.5 BP 118/86 Blood Pressure Location Rt brachial Position Sitting Pulse 93 Pulse Source Pulse Oximeter Pulse Oximetry (%) 99 Oxygen Delivery Method Room Air Intake Visit Reasons: Follow up Allergies No Known Allergies [No Known Allergies*] Allergy (Verified 10/15/23 11:36) Medication List - Last Reconciled 10/15/[address] Ponce MD esomeprazole magnesium 40 mg PO DAILY 30 days metoprolol tartrate 100 mg PO DAILY tamsulosin (Flomax) 0.4 mg PO BEDTIME Tobacco use date assessed: 10/15/23 Dental Screening Dental Screen Date: 10/15/23 Did you have a dental visit in the last 12 months?: Yes Did you have a dental problem in the last 6 months where you did not have access to dental care?: No Was dental information given to patient?: Patient has dentist HPI Follow up HPI Details Patient is a 37-year-old gentleman who was seen in emergency room [facility] 16 of this month He has a history of enlarged spleen, history of major depression, history of GERD, history of erectile disorder, history of hypertension and impaired fasting sugar Patient presented with a chief complaint sharp chest pain for over a year. Patient verbalized to feeling it again night before so he decided to go to emergency room. Labs were done which showed normal WBC count normal hemoglobin and hematocrit Normal electrolytes and kidney functions Influenza RSV and COVID test was negative Liver enzymes were normal except slightly elevated ALT EKG showed normal sinus rhythm heart rate of [address]-T findings Chest x-ray showed no acute findings Patient was discharged after evaluation with a diagnosis of chest wall pain, costochondritis He was instructed to take [id number] Tylenol/ibuprofen as needed His other medications are omeprazole 40 mg Metoprolol tartrate 100 mg only half tablet And tamsulosin 0.4 mg His blood pressure is 118/86 today with a heart rate of 93 beats per minute There is no chest pain today Patient is concerned about his spleen and would like to have referral to gastro His spleen is 14.3 cm slightly enlarged than normal [facility] Surgical History History of tonsillectomy Family History Father No problems noted. Mother No problems noted. Brother No problems noted. Sister No problems noted. Social History Housing: House Alcohol intake: current Alcohol intake frequency: a few times a month Patient Tobacco Use Status: Never used Tobacco e-Cigarette/Vaping Use: Never Used service: No Current occupational status: unemployed Cognitive needs: No Hearing needs: No Vision needs: No Questionnaire Thrive Questionnaire Date Thrive assessed: 01/08/23 AUDIT C Alcohol Use Questionnaire (AUDIT-C) 1. How often do you have a drink containing alcohol?: Never 3. How often do you have six or more drinks on one occasion?: Never Total Score: 0 Score Reviewed/Action Taken: Yes MAXIMO-7 AMB Questionnaire MAXIMO-7 Date MAXIMO - 7 assessed: 01/08/23 Source: Developed by Drs. Benoit Trammell, Gisella Billingsley, Олег Allison and colleagues, with an educational satish from [employer]. Review of Systems Const Denies chills and Denies fever(s) ENT Denies epistaxis and Denies nasal discharge Card Denies chest pain Resp Denies chest congestion, Denies cough and Denies hemoptysis GI Denies diarrhea and Denies nausea Skin/Breast Denies rash Neuro Reports no additional complaints Psych Reports no additional complaints Endo Reports no additional complaints Physical exam (Primary Care) Vital Signs: Last Vital Signs Pulse 93 10/15/23 11:34 BP 118/86 10/15/23 11:34 Pulse Ox 99 10/15/23 11:34 Oxygen Delivery Method Room Air 10/15/23 11:34 BMI result Body Mass Index 26.5 Tobacco/Smoking Status: Tobacco use Status Tobacco use date assessed 10/15/23 10/15/23 11:39 Patient Tobacco Use Status Never used Tobacco 10/15/23 11:39 e-Cigarette/Vaping Use Never Used 10/15/23 11:39 Thrive Assessment: Date of Thrive Assessment Date Thrive assessed 01/08/23 10/15/23 11:39 Const General: cooperative, comfortable and no acute distress Orientation/consciousness: patient oriented x3 HENMT Head: Yes normocephalic Eyes General: appearance normal, both eyes and all related structures Neck Neck: Yes supple Resp Effort & Inspection: normal respiratory effort, no cough and no stridor Cardio Rhythm: regular rhythm Heart sounds: S1 normal heart sound present and S2 normal heart sound present GI Other: Mild epigastric discomfort no guarding no rebound, bowel sounds positive Skin General skin exam: turgor normal Neuro General: patient oriented x3, tone normal and moves all extremities Extrem Right lower extremity: no edema Left lower extremity: no edema Assessment and Plan Assessment & Plan (1) Splenomegaly: Code(s): R16.1 - Splenomegaly, not elsewhere classified (2) Major depression, recurrent: Code(s): F33.9 - Major depressive disorder, recurrent, unspecified Qualifiers: Active/Remission status: currently active Major depression episode severity: severe Psychotic features: without psychotic features Qualified Code(s): F33.2 - Major depressive disorder, recurrent severe without psychotic features (3) Acid reflux: Comment: Continue pantoprazole, avoid culprits With dietary modifications Code(s): K21.9 - Gastro-esophageal reflux disease without esophagitis Qualifiers: Esophagitis bleeding: without hemorrhage Esophagitis presence: with esophagitis Qualified Code(s): K21.00 - Gastro-esophageal reflux disease with esophagitis, without bleeding (4) Hypertension, essential: Code(s): I10 - Essential (primary) hypertension Plan Patient is a 37-year-old gentleman who was seen in emergency room [facility] 16th of this month He has a history of enlarged spleen, history of major depression, history of GERD, history of erectile disorder, history of hypertension and impaired fasting sugar Patient presented with a chief complaint sharp chest pain for over a year. Patient verbalized to feeling it again night before so he decided to go to emergency room. Labs were done which showed normal WBC count normal hemoglobin and hematocrit Normal electrolytes and kidney functions Influenza RSV and COVID test was negative Liver enzymes were normal except slightly elevated ALT EKG showed normal sinus rhythm heart rate of [address]-T findings Chest x-ray showed no acute findings Patient was discharged after evaluation with a diagnosis of chest wall pain, costochondritis He was instructed to take [id number] Tylenol/ibuprofen as needed His other medications are omeprazole 40 mg Metoprolol tartrate 100 mg only half tablet And tamsulosin 0.4 mg His blood pressure is 118/86 today with a heart rate of 93 beats per minute There is no chest pain today Patient is concerned about his spleen and would like to have referral to gastro His spleen is 14.3 cm slightly enlarged than normal Patient does have history of depression as well but he says that he does not want to take any medications He is feeling fine without it, only feel depressed off and on Orders: Referrals Gastroenterology Referral R16.1 - Splenomegaly, not elsewhere classified Coding Level of Care Code Est Pt Level 4 (41504) Diagnoses Splenomegaly R16.1 Severe episode of recurrent major depressive disorder, without psychotic features F33.2 Active/Remission status: currently active Major depression episode severity: severe Psychotic features: without psychotic features Gastroesophageal reflux disease with esophagitis without hemorrhage K21.00 Esophagitis bleeding: without hemorrhage Esophagitis presence: with esophagitis Hypertension, essential I10
== END 2023-10-15 13:59 | disposition home or self-care (01) ==
PROVIDERS: PCP Internal Medicine; Visit Provider Internal Medicine
DX: R16.1 Splenomegaly, not elsewhere classified (principal); F33.2 Major depressive disorder, recurrent severe without psychotic features; K21.00 Gastro-esophageal reflux disease with esophagitis, without bleeding; I10 Essential (primary) hypertension
CPT/HCPCS: 99214

== ENCOUNTER 2023-10-17 15:16 | Outpatient (AMB) | payer OTHER, SELFPAY ==
--- NOTE | 2023-10-17 15:16 | MHC.PC.OV ---
Intake Visit Reasons: Follow Up~[phone] Allergies No Known Allergies [No Known Allergies*] Allergy (Verified 10/17/23 15:17) Medication List - Last Reconciled 10/17/[address] Ponce MD esomeprazole magnesium 40 mg PO DAILY 30 days metoprolol tartrate 100 mg PO DAILY tamsulosin (Flomax) 0.4 mg PO BEDTIME Tobacco use date assessed: 10/17/23 Dental Screening Dental Screen Date: 10/17/23 Did you have a dental visit in the last 12 months?: Yes Did you have a dental problem in the last 6 months where you did not have access to dental care?: No Was dental information given to patient?: Patient has dentist HPI Follow Up~[phone] HPI Details Patient is a 37-year-old gentlemen who is suffering from anxiety and depression Patient says that years ago he used to take medication with the knee stopped taking Lately has been feeling depressed and very anxious He has been visiting emergency room for different problems as well I am starting him on fluoxetine 10 mg We will follow-up on that in 3 3 weeks I have also sent message to our behavior health coordinator so we can help him further. [facility] Surgical History History of tonsillectomy Family History Father No problems noted. Mother No problems noted. Brother No problems noted. Sister No problems noted. Social History Housing: House Alcohol intake: current Alcohol intake frequency: a few times a month Patient Tobacco Use Status: Never used Tobacco e-Cigarette/Vaping Use: Never Used service: No Current occupational status: unemployed Cognitive needs: No Hearing needs: No Vision needs: No Questionnaire Thrive Questionnaire Date Thrive assessed: 01/08/23 MAXIMO-7 AMB Questionnaire MAXIMO-7 Date MAXIMO - 7 assessed: 01/08/23 Source: Developed by Drs. Benoit Trammell, Gisella Billingsley, Олег Allison and colleagues, with an educational satish from [employer] Review of Systems Const Denies chills and Denies fever(s) ENT Denies epistaxis and Denies nasal discharge Card Denies chest pain Resp Denies chest congestion, Denies cough and Denies hemoptysis GI Denies diarrhea and Denies nausea Skin/Breast Denies rash Neuro Reports no additional complaints Psych Reports no additional complaints Endo Reports no additional complaints Physical exam (Primary Care) Tobacco/Smoking Status: Tobacco use Status Tobacco use date assessed 10/17/23 10/17/23 15:17 Patient Tobacco Use Status Never used Tobacco 10/17/23 15:17 e-Cigarette/Vaping Use Never Used 10/17/23 15:17 Thrive Assessment: Date of Thrive Assessment Date Thrive assessed 01/08/23 10/17/23 15:17 Telehealth Telehealth Telehealth Platform: [employer] Location of provider rendering services: practice address Location of patient: address on file Patient Identification confirmed using: Name, : Yes Telehealth method: voice only Patient verbally consented to treatment: Yes Patient verbally consented to billing insurance company: Yes Patient informed of any privacy concerns related to visit: Yes Assessment and Plan Assessment & Plan (1) Anxiety, generalized: Code(s): F41.1 - Generalized anxiety disorder (2) Major depression, recurrent: Code(s): F33.9 - Major depressive disorder, recurrent, unspecified Qualifiers: Active/Remission status: currently active Major depression episode severity: severe Psychotic features: without psychotic features Qualified Code(s): F33.2 - Major depressive disorder, recurrent severe without psychotic features Plan Patient is a 37-year-old gentlemen who is suffering from anxiety and depression Patient says that years ago he used to take medication with the knee stopped taking Lately has been feeling depressed and very anxious He has been visiting emergency room for different problems as well I am starting him on fluoxetine 10 mg We will follow-up on that in 3 3 weeks I have also sent message to our behavior health coordinator so we can help him further. Medications: New fluoxetine 10 mg PO DAILY 30 caps 0RF Coding Level of Care Code Tele Est Pt Level 3 (78623) Diagnoses Anxiety, generalized F41.1 Severe episode of recurrent major depressive disorder, without psychotic features F33.2 Active/Remission status: currently active Major depression episode severity: severe Psychotic features: without psychotic features
== END 2023-10-17 16:34 | disposition home or self-care (01) ==
LOC: HO.HMGC 15:16
PROVIDERS: PCP Internal Medicine; Visit Provider Internal Medicine
DX: F41.1 Generalized anxiety disorder (principal); F33.2 Major depressive disorder, recurrent severe without psychotic features
CPT/HCPCS: 99213

== ENCOUNTER 2024-03-23 13:36 | Outpatient (AMB) | payer OTHER, SELFPAY ==
[2024-03-23 13:38] VITALS: BP 132/86; PULSE 77; O2SAT 99; BMI 27.9
--- NOTE | 2024-03-23 13:38 | MHC.PC.OV ---
Vital Signs 03/23/24 13:38 Height 6 ft 2 in Weight 217 lb 4 oz BMI 27.9 BP 132/86 Blood Pressure Location Lt brachial Position Sitting Pulse 77 Pulse Source Pulse Oximeter Pulse Oximetry (%) 99 Oxygen Delivery Method Room Air Intake Visit Reasons: 5 Month f/u pneumonia Allergies No Known Allergies [No Known Allergies*] Allergy (Verified 03/23/24 13:38) Medication List - Last Reconciled 03/23/[address]once MD esomeprazole magnesium 40 mg PO DAILY fluoxetine 10 mg PO DAILY metoprolol tartrate 100 mg PO DAILY tamsulosin (Flomax) 0.4 mg PO BEDTIME Tobacco use date assessed: 03/23/24 Dental Screening Dental Screen Date: 03/23/24 Did you have a dental visit in the last 12 months?: Yes Did you have a dental problem in the last 6 months where you did not have access to dental care?: No Was dental information given to patient?: Patient has dentist HPI 5 Month f/u pneumonia HPI Details Follow-up anxiety and depression Patient is currently taking fluoxetine 10 mg, which is helping I am increasing medication to 20 mg as he continued to feel anxious Patient has appointment for physical exam in June Labs are needed before visit fasting, order placed Blood pressure is controlled, patient is on metoprolol [facility] Surgical History History of tonsillectomy Family History Father No problems noted. Mother No problems noted. Brother No problems noted. Sister No problems noted. Social History Housing: House Alcohol intake: current Alcohol intake frequency: a few times a month Patient Tobacco Use Status: Never used Tobacco e-Cigarette/Vaping Use: Never Used service: No Current occupational status: unemployed Cognitive needs: No Hearing needs: No Vision needs: No Questionnaire PHQ-9 Over the last 2 weeks, how often have you been bothered by any of the following problems? 1. Little interest or pleasure in doing things: more than half the days 2. Feeling down, depressed, or hopeless: more than half the days 3. Trouble falling or staying asleep, or sleeping too much: not at all 4. Feeling tired or having little energy: more than half the days 5. Poor appetite or overeating: not at all 6. Feeling bad about yourself - or that you are a failure or have let yourself or your family down: not at all 7. Trouble concentrating on things, such as reading the newspaper or watching television: not at all 8. Moving or speaking so slowly that other people could have noticed. Or the opposite - being so fidgety or restless that you have been moving around a lot more than usual: not at all 9. Thoughts that you would be better off or of hurting yourself in some way: not at all Total score: 6 Depression Screening Interpretation: Negative Depression Screening Done: Yes 36904 - PHQ-9 Billing: Yes Source: Developed by Drs. Benoit Trammell, Gisella Billingsley, Олег Allison and colleagues, with an educational satish from [employer]. Thrive Questionnaire Date Thrive assessed: 03/23/24 I am a: Patient What is your living situation today?: I have a steady place to live Within the past 12 months, did the food you bought not last and you didn't have the money to get more?: Never true Within the past 12 months, did you worry whether your food would run out before you got money to buy more?: Sometimes True Do you have trouble paying for medicines?: No Do you have trouble getting transportation to medical appointments?: No Do you have trouble paying your heating and electricity bill?: No Do you have trouble taking care of your child, family member or friend?: No Do you have trouble with day-to-day activities such as bathing, preparing meals, shopping, managing finances, etc.?: No Are you currently unemployed and looking for a job?: I choose not to answer this question Are you interested in more education?: No Please select the resources that you would like help with: None Currently or been in a relationship where the following occur: No concerns reported THRIVE Score: 1 AUDIT C Alcohol Use Questionnaire (AUDIT-C) 1. How often do you have a drink containing alcohol?: Never 3. How often do you have six or more drinks on one occasion?: Never Total Score: 0 Score Reviewed/Action Taken: Yes MAXIMO-7 AMB Questionnaire MAXIMO-7 Date MAXIMO - 7 assessed: 03/23/24 Feeling nervous, anxious, or on edge: 2 = More than half the days Not being able to stop or control worryin = More than half the days Worrying too much about different things: 2 = More than half the days Trouble relaxin = More than half the days Being so restless that it is hard to sit still: 2 = More than half the days Becoming easily annoyed or irritable: 2 = More than half the days Feeling afraid as if something awful might happen: 2 = More than half the days Total MAXIMO-7 score (0-4 normal; 5-9 mild; 10-14 moderate; 15-21 severe): 14 Source: Developed by Drs. Benoit Trammell, Gisella Billingsley, Олег Allison and colleagues, with an educational satish from [employer]. MAXIMO-7 Assessment Billing MAXIMO-7 Assessment Tool: MAXIMO-7 Assessment 32680 Review of Systems Const All systems reviewed & are unremarkable except as noted in HPI and below Physical exam (Primary Care) Vital Signs: Last Vital Signs Pulse 77 03/23/24 13:38 BP 132/86 03/23/24 13:38 Pulse Ox 99 03/23/24 13:38 Oxygen Delivery Method Room Air 03/23/24 13:38 BMI result Body Mass Index 27.9 Tobacco/Smoking Status: Tobacco use Status Tobacco use date assessed 03/23/24 03/23/24 13:44 Patient Tobacco Use Status Never used Tobacco 03/23/24 13:43 e-Cigarette/Vaping Use Never Used 03/23/24 13:43 PHQ-9: PHQ-9 Score PHQ-9: Total score 6 03/23/24 13:44 Depression Screening Interpretation: Negative Thrive Assessment: Date of Thrive Assessment Date Thrive assessed 03/23/24 03/23/24 13:44 Currently or been in a relationship where the following occur: No concerns reported Const General: no acute distress Orientation/consciousness: patient oriented x3 Eyes General: appearance normal, both eyes and all related structures Resp Effort & Inspection: normal respiratory effort and able to speak in complete sentences Neuro General: patient oriented x3 Psych Mental Status: mental status grossly normal Coding Level of Care Code Est Pt Level 3 (19268) Diagnoses Anxiety, generalized F41.1 Severe episode of recurrent major depressive disorder, without psychotic features F33.2 Active/Remission status: currently active Major depression episode severity: severe Psychotic features: without psychotic features Hypertension, essential I10 Additional Codes MAXIMO-7 Assessment Billing - MAXIMO-7 Assessment Tool: MAXIMO-7 Assessment 42435 ([id number]) PHQ-9 - 56807 - PHQ-9 Billing: Yes ([id number]) Assessment & Plan Assessment & Plan (1) Anxiety, generalized: Code(s): F41.1 - Generalized anxiety disorder Category: Medical (2) Major depression, recurrent: Code(s): F33.9 - Major depressive disorder, recurrent, unspecified Category: Medical Qualifiers: Active/Remission status: currently active Major depression episode severity: severe Psychotic features: without psychotic features Qualified Code(s): F33.2 - Major depressive disorder, recurrent severe without psychotic features (3) Hypertension, essential: Code(s): I10 - Essential (primary) hypertension Category: Medical Plan Follow-up anxiety and depression Patient is currently taking fluoxetine 10 mg, which is helping I am increasing medication to 20 mg as he continued to feel anxious Patient has appointment for physical exam in June Labs are needed before visit fasting, order placed Blood pressure is controlled, patient is on metoprolol Orders: Orders Complete Blood Count Auto Diff 3 Months F33.2 - Major depressive disorder, recurrent severe without psychotic features, F41.1 - Generalized anxiety disorder, I10 - Essential (primary) hypertension Lipid Panel 3 Months F33.2 - Major depressive disorder, recurrent severe without psychotic features, F41.1 - Generalized anxiety disorder, I10 - Essential (primary) hypertension TSH reflex Free T4 3 Months F33.2 - Major depressive disorder, recurrent severe without psychotic features, F41.1 - Generalized anxiety disorder, I10 - Essential (primary) hypertension Comprehensive [place]. Panel Fast 3 Months F33.2 - Major depressive disorder, recurrent severe without psychotic features, F41.1 - Generalized anxiety disorder, I10 - Essential (primary) hypertension Medications: Changed From fluoxetine 10 mg PO DAILY 30 caps 0RF To fluoxetine 20 mg PO DAILY 90 caps 0RF 90 days
== END 2024-03-23 14:07 | disposition home or self-care (01) ==
LOC: HO.HMCC 13:37
PROVIDERS: PCP Internal Medicine; Visit Provider Internal Medicine
DX: F41.1 Generalized anxiety disorder (principal); F33.2 Major depressive disorder, recurrent severe without psychotic features; I10 Essential (primary) hypertension

== ENCOUNTER 2024-03-23 13:58 | Outpatient (REF) | payer OTHER, SELFPAY ==
[2024-03-23 16:16] LABS: Appearance Urine Clear; Color Urine Yellow; Glucose Urine UA Negative (Negative); Leukocyte Esterase Urine Negative (Negative); Nitrite Urine Negative (Negative); Urine Blood Negative (Negative); Urine Ketones Negative (Negative); Urine Protein Negative (Neg-Trace)
[2024-03-23 16:42] LABS: Anion Gap 13 (12-20); Blood Urea Nitrogen 19 mg/dL (9-16); Calcium 9.5 mg/dL (8.4-10.2); Carbon Dioxide 27 mmol/L (22-29); Chloride 105 mmol/L (96-108); Estimated Glomerular Filt Rate > 60; Glucose Random 108 mg/dL (60-115); Potassium 4.7 mmol/L (3.3-5.1); Sodium 140 mmol/L (135-145)
[2024-03-23 16:52] LABS: Creatinine Urine 55.17 mg/dL; Total Protein Urine Random < 7 mg/dL (<12)
== END 2024-03-23 13:59 | disposition home or self-care (01) ==
LOC: HO.HMGCLDS 13:58
PROVIDERS: PCP Internal Medicine; Visit Provider Internal Medicine Hypertension Specialist
DX: F41.1 Generalized anxiety disorder (principal); F33.2 Major depressive disorder, recurrent severe without psychotic features; I10 Essential (primary) hypertension; N05.9 Unspecified nephritic syndrome with unspecified morphologic changes
CPT/HCPCS: 36415; 80048; 81003; 82570; 84156; 96127; 99212

== ENCOUNTER 2024-03-31 14:00 | Outpatient (AMB) | payer OTHER, SELFPAY ==
--- NOTE | 2024-03-31 14:03 | A.OFFVIS_ITS ---
Intake Visit Reasons: 1y follow up Intake Note: Patient presents today for a 1Y follow-up Meds- Tamsulosin Allergies to Antibiotic- No Known Allergies Blood Thinner- None Manager Creative Required: No Accompanied by: Self / Same As Patient Allergies No Known Allergies [No Known Allergies*] Allergy (Verified 03/31/24 14:04) Medication List - Last Reconciled 03/31/24 by Dianna Rahman MD esomeprazole magnesium 40 mg PO DAILY fluoxetine 20 mg PO DAILY 90 days metoprolol tartrate 100 mg PO DAILY tamsulosin (Flomax) 0.4 mg PO BEDTIME HPI Comments Details: Fili is a 38-year-old male who is being followed for prostatitis. He is on Flomax b.i.d.. He states that is urinary flow is good he denies dysuria. He will still get occasional ?pain? below the scrotum at night. I have reminded the importance of adequate fluid hydration avoiding dietary bladder irritants including caffeine. Urinalysis today is negative for blood leukocytes or protein. The patient was seen by Nephrology , review of the note, blood pressure medications were adjusted. Review of chart: 07/09/23--Fili is a 37-year-old male who presents today for a telehealth follow-up. He has been treated for prostatitis, currently on flomax. He states that the flomax helps but he still gets intermittent pressure below the scrotum area denies dysuria, he feels that he emptying his bladder well. In review of previous Urinalysis testing, it is notable for proteinuria. I have discussed referral to Nephrology Discussed Cont Flomax, recommended he trial increasing to bid but if he sees no difference in the symptoms to go back to flomax once daily. 03/31/2023-- He is followed today for prostatitis concern. He states urinary symptoms coming back, he did not get a refill on flomax. He was last seen by me on 10/07/2022 for prostatitis. He was tested for screening of STDs by his PCP on 01/16/2023. 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 UA--Leukocytes: negative; blood: negative; bladder scan PVR: 45 mL. 10/07/22- 36-year-old gentleman who is here for prostatitis follow-up. He has been treated with augmentin and was placed on Flomax. [facility] Surgical History History of tonsillectomy Family History Father No problems noted. Mother No problems noted. Brother No problems noted. Sister No problems noted. Social History Housing: House Alcohol intake: current Alcohol intake frequency: a few times a month Patient Tobacco Use Status: Never used Tobacco e-Cigarette/Vaping Use: Never Used service: No Current occupational status: unemployed Cognitive needs: No Hearing needs: No Vision needs: No Review of Systems Const All systems reviewed & are unremarkable except as noted in HPI and below Reports no additional complaints Eyes Reports no additional complaints ENT Reports no additional complaints Card Reports no additional complaints Resp Reports no additional complaints GI Reports no additional complaints Reports as per HPI Musc Reports no additional complaints Skin/Breast Reports system reviewed and no additional complaints, except as documented Neuro Reports no additional complaints Psych Reports no additional complaints Endo Reports no additional complaints Rosalio/Lymph Reports no additional complaints Aller/Immun Reports no additional complaints Results AMB Urinalysis, Automated UA Leukoctes 0 Jona/uL Last Edit by KATERINE Rebolledo on 03/31/24 14:09 UA Nitrite Negative Last Edit by KATERINE Rebolledo on 03/31/24 14:09 UA Urobilinogen 0.2 mg/dL Last Edit by KATERINE Rebolledo on 03/31/24 14:0 9 UA Protein 0 mg/dL Last Edit by KATERINE Rebolledo on 03/31/24 14:09 UA pH 6.0 Last Edit by KATERINE Rebolledo on 03/31/24 14:09 UA Blood 0 Jarad/uL Last Edit by KATERINE Rebolledo on 03/31/24 14:09 UA Specific [place] 1.015 Last Edit by KATERINE Rebolledo on 03/31/24 14: 09 UA Ketone Negative Last Edit by KATERINE Rebolledo on 03/31/24 14:09 UA Bilirubin 0 mg/dL Last Edit by KATERINE Rebolledo on 03/31/24 14:09 UA Glucose 0 mg/dL Last Edit by KATERINE Rebolledo on 03/31/24 14:09 Results Reviewed Results Reviewed: Laboratory Last Values Urine pH (Auto) 6.0 03/31/24 14:09 Specific [place] (Auto) 1.015 03/31/24 14:09 Urine Protein (Auto) 0 mg/dL 03/31/24 14:09 Glucose (UA)(Auto) 0 mg/dL 03/31/24 14:09 Urine Ketones (Auto) Negative 03/31/24 14:09 Urine Blood (Auto) 0 Jarad/uL 03/31/24 14:09 Urine Nitrite (Auto) Negative 03/31/24 14:09 Urine Bilirubin (Auto) 0 mg/dL 03/31/24 14:09 Urine Urobilinogen (Auto) 0.2 mg/dL 03/31/24 14:09 Leukocyte Esterase (Auto) 0 Jona/uL 03/31/24 14:09 Assessment & Plan Assessment & Plan (1) Proteinuria: Comment: Patient seen by Nephrology Code(s): R80.9 - Proteinuria, unspecified Category: Medical (2) Prostatitis: Code(s): N41.9 - Inflammatory disease of prostate, unspecified Category: Medical (3) Urinary frequency: Code(s): R35.0 - Frequency of micturition Category: Medical Plan Flomax q day to bid. FU in 1 year Orders: Orders AMB Urinalysis Automated Today Z13.9 - Encounter for screening, unspecified Patient Instructions: The patient had an opportunity to ask questions regarding treatment plan. The patient expressed understanding and agreement with the above treatment plan. The patient is aware they should contact our office by phone for worsening of their current condition or the appearance of new symptoms. Compliance is encouraged with any medications and followup testing that is ordered. It is a privilege to be allowed the opportunity to participate in the urologic care of your patient. If you have any questions or concerns regarding treatment for the above conditions please do not hesitate to contact me. The office telephone contact is [phone]. This note is constructed in part using voice recognition software. While every effort has been made to ensure accuracy missile and missile checkout technician errors may have been included. Yours sincerely, Dianna Rahman MD Coding Level of Care Code Est Pt Level 4 (79554) Diagnoses Proteinuria R80.9 Prostatitis N41.9 Urinary frequency R35.0
== END 2024-03-31 14:48 | disposition home or self-care (01) ==
PROVIDERS: PCP Internal Medicine; Visit Provider Urology
DX: R80.9 Proteinuria, unspecified (principal); N41.9 Inflammatory disease of prostate, unspecified; R35.0 Frequency of micturition; Z13.9 Encounter for screening, unspecified
CPT/HCPCS: 99214

== ENCOUNTER → 2024-03-31 14:00 | Outpatient (BNVA) | payer OTHER, SELFPAY | PROVIDERS: PCP Internal Medicine; Visit Provider Urology | DX: R80.9 Proteinuria, unspecified (principal); N41.9 Inflammatory disease of prostate, unspecified; R35.0 Frequency of micturition | CPT/HCPCS: 81003; 99212 ==

== ENCOUNTER 2024-09-23 13:36 | Outpatient (AMB) | payer OTHER, SELFPAY ==
--- NOTE | 2024-09-23 13:44 | A.OFFVIS_ITS ---
Vital Signs 09/23/24 13:47 Height 6 ft 2 in Weight 218 lb BMI 28.0 BP 119/70 Blood Pressure Location Lt brachial Position Sitting Pulse 77 Pulse Oximetry (%) 98 Oxygen Delivery Method Room Air Intake Visit Reasons: geoffrey pt Acid reflux Intake Note: Patient Complex follow up for acid reflux/Cata ball 03/31/2023. Patient cc: acid reflux, some rectal blood with hard stool, and difficulty swallowing. Patient was supposted to do an EGD in the pass. Drainage Inspector Required: No Accompanied by: Family/Other Allergies No Known Allergies [No Known Allergies*] Allergy (Verified 09/23/24 13:43) Medication List - Last Reconciled 09/23/24 by Morelia Barba CNP esomeprazole magnesium 40 mg PO DAILY fluoxetine 20 mg PO DAILY 90 days metoprolol tartrate 100 mg PO DAILY tamsulosin (Flomax) 0.4 mg PO BEDTIME HPI HPI geoffrey pt Acid reflux: Details: Patient is a 38-year-old male with PMH of anxiety, depression, hypertension and GERD. Last visit with YUDITH Ruiz 03/31/2023 for acid reflux. Today he is here for follow-up on acid reflux. Patient is accompanied by his aunt Magui. The patient reports experiencing symptoms of acid reflux since March 2023. He did not complete the EGD as planned two years ago due to weather conditions. These symptoms have persisted and include chest pains and a burning sensation in the chest, particularly when not on medication. The patient describes the pain as tightening and burning in the mid-chest/epigastric area. After consuming large meals, the patient feels as though food is stuck in the throat, leading to hiccups. Aggravating factors include large meals, pizza, acidic foods, and spicy foods. Drinking water and taking esomeprazole have been noted to alleviate symptoms. The patient has been on esomeprazole for over three years but has taken breaks due to concerns about long-term use affecting bones. Associated symptoms include occasional difficulty swallowing and regurgitation with large meals. The patient's appetite is not severely impacted. He reports daily BM with occasional bright red bleeding with wiping after straining. Patient denies: fever/chills, n/v, appetite changes or unintentional wt loss SOCIAL HISTORY: - Diet: Consumes pizza, black coffee (2 cups for liver health), aware of certain dietary triggers. - Alcohol/Tobacco/Drug Use: Stopped alcohol consumption for four years due to concerns about liver damage. No use of recreational drugs. No current or past tobacco use. No vaping. -family hx as below -denies personal hx of CA -denies significant cardiopulmonary history -tolerated anesthesia in the past without difficulty (dental procedure). [facility] Medical History (Updated 09/23/24 @ 16:40 by Morelia Barba CNP) Elevated liver enzymes Surgical History History of tonsillectomy Family History (Updated 09/23/24 @ 14:13 by Morelia Barba CNP) Father Prostate cancer Mother Guillain-[employer] disease, Onset Age: 18 Brother No problems noted. Sister No problems noted. Social History Housing: House Alcohol intake: current Alcohol intake frequency: a few times a month Patient Tobacco Use Status: Never used Tobacco e-Cigarette/Vaping Use: Never Used service: No Current occupational status: unemployed Cognitive needs: No Hearing needs: No Vision needs: No Review of Systems Const Reports as per HPI ENT Reports as per HPI Card Reports as per HPI Resp Reports as per HPI GI Reports as per HPI Reports as per HPI Physical Exam Vital Signs: Last Vital Signs Pulse 77 09/23/24 13:47 BP 119/70 09/23/24 13:47 Pulse Ox 98 09/23/24 13:47 Oxygen Delivery Method Room Air 09/23/24 13:47 BMI result Body Mass Index 28.0 Const General: healthy appearing, no acute distress, well developed and poor hygiene Nutritional Appearance: overweight Orientation/consciousness: patient oriented x3 HEENT Head: Yes normal to inspection, Yes normocephalic and Yes atraumatic Face and sinus: Yes normal facial exam Eyes General: appearance normal, both eyes and all related structures Neck Neck: Yes normal visual inspection Resp Effort & Inspection: normal respiratory effort, able to speak in complete sentences, no tracheal deviation and symmetric chest movement Auscultation: clear to auscultation bilaterally Cardio Jugular venous distension: no JVD Rate: regular rate Rhythm: regular rhythm Heart sounds: S1 normal heart sound present, S2 normal heart sound present, no gallops and no murmurs GI Inspection: Yes normal to inspection, No distended and Yes obesity Palpation (GI): Soft to palpation, not firm, nontender and No hepatosplenomegaly present Auscultation: normal bowel sounds Neuro General: patient oriented x3 Gait exam (Neuro): Normal gait present Psych Appearance: grossly normal Mental Status: mental status grossly normal Speech and movement: Normal speech and movement present Affect: normal affect Attitude: cooperative Thought process: Normal thought process present Thought content: Normal thought content present Insight: Good insight present (Psych) Judgement: Good judgement present (Psych) Results Reviewed Results Reviewed: Laboratory Tests 10/02/23 12:12 Total Bilirubin 0.3 AST 33 ALT 43 H Alkaline Phosphatase 40 Total Protein 7.0 Albumin 3.9 Assessment & Plan Assessment & Plan (1) Acid reflux: Code(s): K21.9 - Gastro-esophageal reflux disease without esophagitis Category: Medical Qualifiers: Esophagitis presence: with esophagitis Esophagitis bleeding: without hemorrhage Qualified Code(s): K21.00 - Gastro-esophageal reflux disease with esophagitis, without bleeding Plan: - Primary Diagnoses: Gastroesophageal Reflux Disease (GERD). - Differential Diagnoses: Esophageal stricture, Springer's esophagus, peptic ulcer disease, functional dyspepsia. PLAN: - Additional Tests: Recommend an endoscopy (EGD) to assess for esophageal or stomach inflammation and to rule out complications. - Medications: Adjustment of esomeprazole timing advised. Patient instructed to take it in the morning on an empty stomach, 30 minutes before a meal. - Lifestyle Modifications: Hydration with water, avoid known triggers (spicy foods, acidic foods, caffeine, chocolate). Eat smaller meals and avoid lying down post-meal for at least 2 hours. (2) Elevated liver enzymes: Code(s): R74.8 - Abnormal levels of other serum enzymes Category: Medical Plan: Slight elevation in ALT at time of last collection 10/02/2023. He will complete labs already ordered by PCP but after fasting to confirm if elevated levels were not due to postprandial state Plan Patient to return after the endoscopy for review of findings and re-evaluate symptoms. Time: I spent a total of 45 minutes on the date of encounter which includes: Preparing to see the patient (reviewed previous documentation, test results and medical history) Performing a medically appropriate exam and/or evaluation Ordering medications, tests, and procedures Documenting clinical information in the health record Coding Level of Care Code Established Pt Est Pt Level 4 (40303) Patient Type Established Diagnoses Gastroesophageal reflux disease with esophagitis without hemorrhage K21.00 Esophagitis presence: with esophagitis Esophagitis bleeding: without hemorrhage Elevated liver enzymes R74.8
[2024-09-23 13:47] VITALS: BP 119/70; PULSE 77; O2SAT 98; BMI 28.0
--- OUTSIDE RECORDS SUMMARY | 2024-09-23 14:37 | XMS_ITS | Clinical Summary ---
Author Organization [facility] Address [address] [place] [address] Phone Care Team Providers Care Commercial Lending Vice President Name Role Phone Lane Ponce MD Primary Care Provider [phone] Allergies No known active allergies Medications omeprazole (PriLOSEC) [address] capsule Take by mouth 1 (one) time each day 1 Active metoprolol tartrate (LOPRESSOR) 100 MG tablet TAKE 1 TABLET BY MOUTH 1 TIME EACH DAY. 90 tablet 1 3 Active amLODIPine (NORVASC) 10 MG tabletIndications :Primary hypertension TAKE 0.5 TABLETS BY MOUTH 1 TIME EACH DAY. 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 Hypertensive disorder 02/02/2021 Obesity 02/02/2021 Family History Relation Status Comments Father Alive Mother Alive Social History Tobacco Use Types Packs/Day Years Used Date Smoking Tobacco: Never Smokeless Tobacco: Never Alcohol Use Standard Drinks/Week Comments Yes 0 (1 standard drink = 0.6 oz pur e alcohol) Sex and Gender Information Value Date Recorded Sex Assigned at Not on file Legal Sex Male 4:49 PM EST Gender Identity Not on file Sexual Orientation Not on file Last Filed Vital Signs Vital Sign Reading Time Taken Comments Blood Pressure 116/80 04/05/2021 3:25 PM EST Pulse 76 04/05/2021 3:25 PM EST Temperature - - Respiratory Rate - - Oxygen Saturation 99% 04/05/2021 3:25 PM EST Inhaled Oxygen Concentration - - Weight 100 kg (220 lb 9.6 oz) 04/05/2021 3:25 PM EST Height 188 cm (6' 2 ) 04/29/2019 12:00 PM EST Body Mass Index 28.32 04/29/2019 12:00 PM EST Plan of Treatment Health Maintenance Due Date Last Done Comments Hepatitis B Vaccine (1 of 3 - 19+ 3-dose series) 12/26/2006 Influenza Vaccine (Season Ended) 2025 Pneumococcal Vaccine: Peds ( 0 to 5 Years) and At-Risk Patients (6 to 49 Years) Aged Out No longer eligible b ased on patient's age to complete this topic Insurance Medicaid Medicaid Care Teams Commercial Lending Vice President Relationship Specialty Start Date End Date Lane Ponce MD [facility] [place] [address] PCP - General 05/29/20
--- OUTSIDE RECORDS SUMMARY | 2024-09-23 14:37 | XMS_ITS | Encounter Summary ---
Author Organization [facility] Address [address] [place] [address] Phone Care Team Providers Care Statistical Consultant Name Role Phone Lane Ponce MD Primary Care Provider [phone] Reason for Visit * Reason Comments Med Change Request Encounter Details Date Type Department Care Team (Late st Contact Info) Description 02/03/2023 Refill [facility] [address] [place] [phone] Juan Alberto Reyna MD Primary hypertension Social History Tobacco Use Types Packs/Day Years Used Date Smoking Tobacco: Never Smokeless Tobacco: Never Alcohol Use Standard Drinks/Week Comments Yes 0 (1 standard drink = 0.6 oz pur e alcohol) Sex and Gender Information Value Date Recorded Sex Assigned at Not on file Legal Sex Male 4:49 PM EST Gender Identity Not on file Sexual Orientation Not on file documented as of this encounter Plan of Treatment Not on file documented as of this encounter Visit Diagnoses Diagnosis Primary hypertension documented in this encounter Care Teams Statistical Consultant Relationship Specialty Start Date End Date Lane Ponce MD [address] [place] [address] PCP - General 05/29/20 documented as of this encounter
--- OUTSIDE RECORDS SUMMARY | 2024-09-23 14:37 | XMS_ITS | Encounter Summary ---
Author Organization [facility] [place] Address [address] [place] [address] Phone Care Team Providers Care Thermoforming Machine Operator Name Role Phone Lane Ponce MD Primary Care Provider [phone] Reason for Visit * Reason Comments Med Change Request Encounter Details Date Type Department Care Team (Late st Contact Info) Description 03/01/2023 Refill [facility] [address] [place] [phone] Juan Alberto Reyna MD Primary hypertension Social [...] hypertension documented in this encounter Care Teams Thermoforming Machine Operator Relationship Specialty Start Date End Date Lane Ponce MD [address] [place] [address] PCP - General 05/29/20 documented as of this encounter
== END 2024-09-23 14:25 | disposition home or self-care (01) ==
LOC: HO.HGI 13:37
PROVIDERS: PCP Internal Medicine; Visit Provider Nurse Practitioner Family
DX: K21.00 Gastro-esophageal reflux disease with esophagitis, without bleeding (principal); R74.8 Abnormal levels of other serum enzymes
CPT/HCPCS: 99214

== ENCOUNTER → 2024-09-23 13:36 | Outpatient (BNVA) | payer OTHER, SELFPAY | PROVIDERS: PCP Internal Medicine; Visit Provider Nurse Practitioner Family | DX: K21.00 Gastro-esophageal reflux disease with esophagitis, without bleeding (principal); R74.8 Abnormal levels of other serum enzymes | CPT/HCPCS: 99212 ==

== ENCOUNTER 2025-01-25 14:32 | Outpatient (AMB) | payer OTHER, SELFPAY ==
--- NOTE | 2025-01-25 14:36 | MHC.PC.OV ---
Vital Signs 01/25/25 14:37 Height 6 ft 2 in Weight 230 lb BMI 29.5 BP 120/80 Blood Pressure Location Lt brachial Position Sitting Pulse 79 Pulse Source Pulse Oximeter Pulse Oximetry (%) 98 Intake Visit Reasons: Annual PE Allergies No Known Allergies (No Known Allergies*) Allergy (Verified 01/25/25 14:37) Medication List - Last Reconciled 01/25/[address] Ponce MD esomeprazole magnesium 40 mg PO DAILY fluoxetine 20 mg PO DAILY 90 days metoprolol tartrate 100 mg PO DAILY tamsulosin (Flomax) 0.4 mg PO BEDTIME Tobacco use date assessed: 01/25/25 Dental Screening Dental Screen Date: 01/25/25 Did you have a dental visit in the last 12 months?: Yes Did you have a dental problem in the last 6 months where you did not have access to dental care?: No Was dental information given to patient?: Patient has dentist HPI Annual PE HPI Details Patient is a 39-year-old gentleman came in today for physical examination Patient continued to feel anxiety and depression with fluoxetine 20 mg And is requesting to go up on the dose to 40 mg. He was supposed to have labs done before this visit order was placed in March Patient forgot and will have it done today GERD is stable with PPI Blood pressure is 1 20 x 80 patient is on metoprolol 10 mg He is also established with the Urology and is on Flomax Patient will return in 4 months for follow-up on anxiety and depression [facility] Medical History Elevated liver enzymes Surgical History History of tonsillectomy Family History Father Prostate cancer Mother Guillain-[place] disease, Onset Age: 18 Brother No problems noted. Sister No problems noted. Social History Housing: House Alcohol intake: current Alcohol intake frequency: a few times a month Patient Tobacco Use Status: Never used Tobacco e-Cigarette/Vaping Use: Never Used service: No Current occupational status: unemployed Cognitive needs: No Hearing needs: No Vision needs: No Questionnaire PHQ-9 Over the last 2 weeks, how often have you been bothered by any of the following problems? 1. Little interest or pleasure in doing things: not at all 2. Feeling down, depressed, or hopeless: more than half the days 3. Trouble falling or staying asleep, or sleeping too much: more than half the days 4. Feeling tired or having little energy: more than half the days 5. Poor appetite or overeating: more than half the days 6. Feeling bad about yourself - or that you are a failure or have let yourself or your family down: more than half the days 7. Trouble concentrating on things, such as reading the newspaper or watching television: not at all 8. Moving or speaking so slowly that other people could have noticed. Or the opposite - being so fidgety or restless that you have been moving around a lot more than usual: more than half the days 9. Thoughts that you would be better off or of hurting yourself in some way: not at all Total score: 12 Depression Screening Interpretation: Positive Depression Screening Follow-up: Existing condition and In treatment Depression Screening Done: Yes 35405 - PHQ-9 Billing: Yes Source: Developed by Drs. Benoit Trammell, Gisella Billingsley, Олег Allison and colleagues, with an educational satish from [employer]. Thrive Questionnaire Date Thrive assessed: 01/25/25 I am a: Patient What is your living situation today?: I have a steady place to live Within the past 12 months, did the food you bought not last and you didn't have the money to get more?: Never true Within the past 12 months, did you worry whether your food would run out before you got money to buy more?: Never true Do you have trouble paying for medicines?: No Do you have trouble getting transportation to medical appointments?: No Do you have trouble paying your heating and electricity bill?: I choose not to answer this question Do you have trouble taking care of your child, family member or friend?: No Do you have trouble with day-to-day activities such as bathing, preparing meals, shopping, managing finances, etc.?: No Are you currently unemployed and looking for a job?: I choose not to answer this question Are you interested in more education?: No Please select the resources that you would like help with: None Currently or been in a relationship where the following occur: No concerns reported THRIVE Score: 0 AUDIT C Alcohol Use Questionnaire (AUDIT-C) 1. How often do you have a drink containing alcohol?: Never 3. How often do you have six or more drinks on one occasion?: Never Total Score: 0 Score Reviewed/Action Taken: Yes MAXIMO-7 AMB Questionnaire MAXIMO-7 Date MAXIMO - 7 assessed: 01/25/25 Feeling nervous, anxious, or on edge: 2 = More than half the days Not being able to stop or control worryin = More than half the days Worrying too much about different things: 2 = More than half the days Trouble relaxin = More than half the days Being so restless that it is hard to sit still: 2 = More than half the days Becoming easily annoyed or irritable: 2 = More than half the days Feeling afraid as if something awful might happen: 2 = More than half the days Total MAXIMO-7 score (0-4 normal; 5-9 mild; 10-14 moderate; 15-21 severe): 14 Source: Developed by Drs. Benoit Trammell, Gisella Billingsley, Олге Allison and colleagues, with an educational satish from [employer]. MAXIMO-7 Assessment Billing MAXIMO-7 Assessment Tool: MAXIMO-7 Assessment 50261 Physical exam (Primary Care) Vital Signs: Last Vital Signs Pulse 79 01/25/25 14:37 BP 120/80 01/25/25 14:37 Pulse Ox 98 01/25/25 14:37 BMI result Body Mass Index 29.5 Tobacco/Smoking Status: Tobacco use Status Tobacco use date assessed 01/25/25 01/25/25 14:40 Patient Tobacco Use Status Never used Tobacco 01/25/25 14:40 e-Cigarette/Vaping Use Never Used 01/25/25 14:40 PHQ-9: PHQ-9 Score PHQ-9: Total score 12 01/25/25 14:40 Depression Screening Interpretation: Positive Depression Screening Follow-up: Existing condition and In treatment Thrive Assessment: Date of Thrive Assessment Date Thrive assessed 01/25/25 01/25/25 14:40 Currently or been in a relationship where the following occur: No concerns reported Coding Level of Care Code Est Pt Level 3 (41970) Est Pt Prev Care 18-39y(08416) Diagnoses Encounter for general adult medical examination with abnormal findings Z00.01 Gastroesophageal reflux disease with esophagitis without hemorrhage K21.00 Esophagitis bleeding: without hemorrhage Esophagitis presence: with esophagitis Impaired fasting blood sugar R73.01 Hypertension, essential I10 Anxiety, generalized F41.1 Severe episode of recurrent major depressive disorder, without psychotic features F33.2 Active/Remission status: currently active Major depression episode severity: severe Psychotic features: without psychotic features Additional Codes MAXIMO-7 Assessment Billing - MAXIMO-7 Assessment Tool: MAXIMO-7 Assessment 26405 ([id number]) PHQ-9 - 77819 - PHQ-9 Billing: Yes ([id number]) Assessment & Plan Assessment & Plan (1) Encounter for general adult medical examination with abnormal findings: Code(s): Z00.01 - Encounter for general adult medical examination with abnormal findings Category: Medical (2) Acid reflux: Code(s): K21.9 - Gastro-esophageal reflux disease without esophagitis Category: Medical Qualifiers: Esophagitis bleeding: without hemorrhage Esophagitis presence: with esophagitis Qualified Code(s): K21.00 - Gastro-esophageal reflux disease with esophagitis, without bleeding (3) Impaired fasting blood sugar: Code(s): R73.01 - Impaired fasting glucose Category: Medical (4) Hypertension, essential: Code(s): I10 - Essential (primary) hypertension Category: Medical (5) Anxiety, generalized: Code(s): F41.1 - Generalized anxiety disorder Category: Medical (6) Major depression, recurrent: Code(s): F33.9 - Major depressive disorder, recurrent, unspecified Category: Medical Qualifiers: Active/Remission status: currently active Major depression episode severity: severe Psychotic features: without psychotic features Qualified Code(s): F33.2 - Major depressive disorder, recurrent severe without psychotic features Plan Patient is a 39-year-old gentleman came in today for physical examination Patient continued to feel anxiety and depression with fluoxetine 20 mg And is requesting to go up on the dose to 40 mg. He was supposed to have labs done before this visit order was placed in March Patient forgot and will have it done today GERD is stable with PPI Blood pressure is 1 20 x 80 patient is on metoprolol 10 mg He is also established with the Urology and is on Flomax Patient will return in 4 months for follow-up on anxiety and depression Orders: Orders LDL Cholesterol Direct Today F33.2 - Major depressive disorder, recurrent severe without psychotic features, F41.1 - Generalized anxiety disorder, I10 - Essential (primary) hypertension, K21.00 - Gastro-esophageal reflux disease with esophagitis, without bleeding, R73.01 - Impaired fasting glucose, Z00.01 - Encounter for general adult medical examination with abnormal findings TSH reflex Free T4 Today F33.2 - Major depressive disorder, recurrent severe without psychotic features, F41.1 - Generalized anxiety disorder, I10 - Essential (primary) hypertension, K21.00 - Gastro-esophageal reflux disease with esophagitis, without bleeding, R73.01 - Impaired fasting glucose, Z00.01 - Encounter for general adult medical examination with abnormal findings Complete Blood Count Auto Diff Today F33.2 - Major depressive disorder, recurrent severe without psychotic features, F41.1 - Generalized anxiety disorder, I10 - Essential (primary) hypertension, K21.00 - Gastro-esophageal reflux disease with esophagitis, without bleeding, R73.01 - Impaired fasting glucose, Z00.01 - Encounter for general adult medical examination with abnormal findings Comprehensive Met. Panel Today F33.2 - Major depressive disorder, recurrent severe without psychotic features, F41.1 - Generalized anxiety disorder, I10 - Essential (primary) hypertension, K21.00 - Gastro-esophageal reflux disease with esophagitis, without bleeding, R73.01 - Impaired fasting glucose, Z00.01 - Encounter for general adult medical examination with abnormal findings Hemoglobin A1c Today R73.01 - Impaired fasting glucose Medications: Changed From fluoxetine 20 mg PO DAILY 90 days 90 caps 0RF To fluoxetine 40 mg (2 x 20 mg) PO DAILY 180 caps 0RF 90 days
[2025-01-25 14:37] VITALS: BP 120/80; PULSE 79; O2SAT 98; BMI 29.5
--- OUTSIDE RECORDS SUMMARY | 2025-01-25 17:06 | XMS_ITS | Encounter Summary ---
Author Organization [facility] Address [address] [place] [address] Phone Care Team Providers Care Head Of English Name Role Phone Lane Ponce MD Primary Care Provider [phone] Reason for Visit * Reason Comments Med Change Request Encounter Details Date Type Department Care Team (Late st Contact Info) Description 03/01/2023 Refill [facility] [address] [place] [phone] Juan Alberto Reyna MD Primary hypertension Social [...] hypertension documented in this encounter Care Teams Head Of English Relationship Specialty Start Date End Date Lane Ponce MD [address] [place] [address] PCP - General 05/29/20 documented as of this encounter
--- OUTSIDE RECORDS SUMMARY | 2025-01-25 17:06 | XMS_ITS | Clinical Summary ---
Author Organization [facility] Address [address] [place] [address] Phone Care Team Providers Care Marklogic Developer Name Role Phone Lane Ponce MD Primary Care Provider [phone] Allergies No known active allergies Medications omeprazole [...] - 19+ 3-dose series) 12/26/2006 Influenza Vaccine (#1) 2025 Pneumococcal Vaccine: Peds ( 0 to 5 Years) and At-Risk Patients (6 to 49 Years) Aged Out No longer eligible b ased on patient's age to complete this topic Insurance Medicaid Medicaid Care Teams Marklogic Developer Relationship Specialty Start Date End Date Lane Ponce MD [place] [place] [address] PCP - General 05/29/20
--- OUTSIDE RECORDS SUMMARY | 2025-01-25 17:06 | XMS_ITS | Encounter Summary ---
Author Organization [facility] Address [address] [place] [address] Phone Care Team Providers Care Fruit And Vegetable Classer Name Role Phone Lane Ponce MD Primary Care Provider [phone] Reason for Visit * Reason Comments Med Change Request Encounter Details Date Type Department Care Team (Late st Contact Info) Description 02/03/2023 Refill [facility] [address] [place] [phone] Juan Alberto Reyna MD Primary hypertension Social [...] hypertension documented in this encounter Care Teams Fruit And Vegetable Classer Relationship Specialty Start Date End Date Lane Ponce MD [address] [place] [address] PCP - General 05/29/20 documented as of this encounter
== END 2025-01-25 14:49 | disposition home or self-care (01) ==
LOC: HO.HMCC 14:33
PROVIDERS: PCP Internal Medicine; Visit Provider Internal Medicine
DX: Z00.01 Encounter for general adult medical examination with abnormal findings (principal); K21.00 Gastro-esophageal reflux disease with esophagitis, without bleeding; F33.2 Major depressive disorder, recurrent severe without psychotic features; R73.01 Impaired fasting glucose; I10 Essential (primary) hypertension; F41.1 Generalized anxiety disorder

== ENCOUNTER → 2025-01-25 14:32 | Outpatient (BNVA) | payer OTHER, SELFPAY | PROVIDERS: PCP Internal Medicine; Visit Provider Internal Medicine | DX: Z00.01 Encounter for general adult medical examination with abnormal findings (principal); K21.00 Gastro-esophageal reflux disease with esophagitis, without bleeding; R73.01 Impaired fasting glucose; I10 Essential (primary) hypertension; F41.1 Generalized anxiety disorder; F33.2 Major depressive disorder, recurrent severe without psychotic features; Z79.899 Other long term (current) drug therapy | CPT/HCPCS: 96127; 99212; 99395 ==

== ENCOUNTER 2025-03-14 13:08 | Outpatient (REF) | payer OTHER, SELFPAY ==
[2025-03-14 16:08] LABS: MANUAL DIFF FLAG NO
[2025-03-14 16:24] LABS: Hematocrit 45.8 % (42.0-52.0); Hemoglobin 14.5 g/dl (14.0-18.0); Imm Gran Abs Auto 0.04 X10*3/uL (0.00-0.03); Imm Gran Pct Auto 0.6 % (0.0-0.4); Lymphocytes Absolute Auto 2.0 X10*3/uL (1.2-4.9); Mean Corpuscular HGB Conc 31.7 g/dl (31.0-36.0); Mean Corpuscular Hemoglobin 29.5 pg (27.0-33.0); Mean Corpuscular Volume 93.3 fL (80.0-98.0); NRBC Abs Auto 0.000 X10*3/uL (0.0-0.012); NRBC Pct Auto 0.0 /100WBC (0.0-0.2); Platelet Count 230 X10*3/uL (160-400); Red Blood Count 4.91 X10*6/uL (4.60-5.80); White Blood Count 7.2 X10*3/uL (4.8-10.8)
--- OUTSIDE RECORDS SUMMARY | 2025-03-14 16:42 | XMS_ITS | Encounter Summary ---
Author Organization [facility] [place] Address [address] [place] [address] Phone Care Team Providers Care Stunt Driver Name Role Phone Lane Ponce MD Primary Care Provider Reason for Visit * Reason Comments Med Change Request Encounter Details Date Type Department Care Team (Late st Contact Info) Description 03/01/2023 Refill [facility] [address] [place] [phone] Juan Alberto Reyna MD Primary hypertension Social [...] hypertension documented in this encounter Care Teams Stunt Driver Relationship Specialty Start Date End Date Lane Ponce MD [address] [place] [address] PCP - General 05/29/20 documented as of this encounter
--- OUTSIDE RECORDS SUMMARY | 2025-03-14 16:42 | XMS_ITS | Encounter Summary ---
Author Organization [facility] [place] Address [address] [place] [address] Phone Care Team Providers Care Fire Protection Designer Name Role Phone Lane Ponce MD Primary Care Provider [phone] Reason for Visit * Reason Comments Med Change Request Encounter Details Date Type Department Care Team (Late st Contact Info) Description 02/03/2023 Refill [facility] [address] [place] [phone] Juan Alberto Reyna MD Primary hypertension Social [...] hypertension documented in this encounter Care Teams Fire Protection Designer Relationship Specialty Start Date End Date Lane Ponce MD [address] [place] [address] PCP - General 05/29/20 documented as of this encounter
--- OUTSIDE RECORDS SUMMARY | 2025-03-14 16:42 | XMS_ITS | Clinical Summary ---
Author Organization [facility] [place] Address [address] [place] [address] Phone Care Team Providers Care Veneer Drier Name Role Phone Lane Ponce MD Primary Care Provider [phone] Allergies No known active allergies Medications omeprazole [...] this topic Insurance Medicaid Medicaid Care Teams Veneer Drier Relationship Specialty Start Date End Date Lane Ponce MD [facility] [place] [address] PCP - General 05/29/20
[2025-03-14 16:44] LABS: Alanine Aminotransferase 21 U/L (0-40); Albumin Level 4.5 g/dL (3.5-5.0); Alkaline Phosphatase 60 U/L (39-117); Anion Gap 10 (12-20); Aspartate Amino Transferase 23 U/L (5-37); Blood Urea Nitrogen 23 mg/dL (9-16); Calcium 9.0 mg/dL (8.4-10.2); Carbon Dioxide 28 mmol/L (22-29); Chloride 106 mmol/L (96-108); Estimated Glomerular Filt Rate > 60; Potassium 4.4 mmol/L (3.3-5.1); Sodium 140 mmol/L (135-145); Total Protein 7.4 g/dL (6.5-8.0)
== END 2025-03-14 13:09 | disposition home or self-care (01) ==
LOC: HO.HMGCLDS 13:08
PROVIDERS: PCP Internal Medicine; Visit Provider Internal Medicine
DX: Z00.01 Encounter for general adult medical examination with abnormal findings (principal); K21.00 Gastro-esophageal reflux disease with esophagitis, without bleeding; R73.01 Impaired fasting glucose; I10 Essential (primary) hypertension; F41.1 Generalized anxiety disorder; F33.2 Major depressive disorder, recurrent severe without psychotic features
CPT/HCPCS: 36415; 80053; 83036; 83721; 84443; 85025

== ENCOUNTER 2025-04-11 11:43 | Outpatient (AMB) | payer OTHER, SELFPAY ==
--- NOTE | 2025-04-11 12:25 | AM.OFFWIN_ITS ---
Intake Vital Signs 04/11/25 12:26 Height 6 ft 2 in Weight 235 lb BMI 30.2 BP 118/88 Blood Pressure Location Lt brachial Position Sitting Pulse 73 Pulse Source Pulse Oximeter Pulse Oximetry (%) 100 Oxygen Delivery Method Room Air Intake Visit Reasons: eP right ankle pain Intake Note: Patient presents c/o right ankle pain/swelling/bruising related to rolling his ankle while tripping on the stairs about 4 days. Patient Tobacco Use Status: Never used Tobacco Allergies No Known Allergies (No Known Allergies*) Allergy (Verified 04/11/25 12:28) Do you need a note to return to daycare/school/sports/work: No HPI HPI Comments History of Present Illness Details 39 y/o male presents to walk-in clinic w [facility] c/o right ankle injury sustained 4 days ago. Pt reports he was going down stairs when he tripped and inverted/rolled the ankle. Noticed progressive swelling, pain, and bruising beginning 2 days after the injury. States he has a history of prior fracture to the same ankle and believes this incident may have aggravated the old injury. Has been using SARAY wrap, elevating, and taking acetaminophen with partial relief. Denies numbness, tingling, or loss of sensation in toes. No reported instability or inability to bear weight, though ambulation is painful. [facility] Medical History (Updated 04/11/25 @ 13:11 by Perlita Moreau NP) Right ankle swelling Elevated liver enzymes Surgical History History of tonsillectomy Family History Father Prostate cancer Mother Guillain-[place] disease, Onset Age: 18 Brother No problems noted. Sister No problems noted. Social History Housing: House Alcohol intake: current Alcohol intake frequency: a few times a month Patient Tobacco Use Status: Never used Tobacco e-Cigarette/Vaping Use: Never Used service: No Current occupational status: unemployed Cognitive needs: No Hearing needs: No Vision needs: No Review of Systems Const All systems reviewed & are unremarkable except as noted in HPI and below Physical Exam Vital Signs: Last Vital Signs Pulse 73 04/11/25 12:26 BP 118/88 04/11/25 12:26 Pulse Ox 100 04/11/25 12:26 Oxygen Delivery Method Room Air 04/11/25 12:26 BMI result Body Mass Index 30.2 Const General: no acute distress; No comfortable Nutritional Appearance: obese Orientation/consciousness: patient oriented x3 Neuro General: patient oriented x3, gait normal and moves all extremities Extrem Other: Right ankle: Swelling noted over lateral aspect. Ecchymosis present along lateral malleolus and extending to lateral foot. TTP over lateral malleolus; minimal or no tenderness over medial Malleolus. ROM limited due to pain. No gross deformity. Sensation intact; cap refill <2 seconds; toes warm. Able to bear weight with limp. Psych Speech and movement: Normal speech and movement present Assessment & Plan Assessment & Plan (1) Right ankle swelling: Code(s): M25.471 - Effusion, right ankle Plan: Right ankle sprain vs. possible recurrent injury. Differential: Lateral ankle sprain vs Distal fibular fracture vs Avulsion fracture vs Peroneal tendon strain. Order right ankle X-ray to rule out fracture given swelling, ecchymosis, and prior fracture history. Continue RICE: rest, ice 15?20 min q2?3h for 48?72 hrs, compression with SARAY wrap, elevation. Tylenol PRN for pain; can add NSAID. Avoid high-impact activity until fully recovered. Orders: Orders XR ankle RT min 3V Today S96.911A - Strain of unspecified muscle and tendon at ankle and foot level, right foot, initial encounter Coding Level of Care Code Est Pt Level 4 (93681) Diagnoses Right ankle swelling M25.471 Time Spent (min) 20
[2025-04-11 12:26] VITALS: BP 118/88; PULSE 73; O2SAT 100; BMI 30.2
== END 2025-04-11 13:49 | disposition home or self-care (01) ==
PROVIDERS: PCP Internal Medicine; Visit Provider Nurse Practitioner Family
DX: M25.471 Effusion, right ankle (principal)

== ENCOUNTER 2025-04-11 11:43 | Outpatient (REF) | payer OTHER, SELFPAY ==
--- NOTE | ~2025-04-11 | XR_ITS ---
EXAMINATION: XR ANKLE, right CLINICAL INFORMATION: S96.911A - Strain of unspecified muscle and tendon at ankle and foot lev... 39 y/o Male patient who injured his Ankle 4 days ago after a Fall down stairs at home, pain and swelling COMPARISON: None available. TECHNIQUE: AP, lateral, and mortise views lower extremity joint, ankle. FINDINGS: There is a bony fragment inferior to lateral malleolus and superior lateral to the lateral process of talus measuring approximately 4 x 11 mm. It has corticated margins along its medial and lateral margin. However, the cephalad margin is not clearly corticated. No fracture line is evident through the lateral process of talus. Ankle mortise is congruent. There is no widening of the syndesmosis. Talar dome is intact. There are no calcaneal enthesophyte(s). There is lateral soft tissue swelling. XR/XR ankle RT min 3V IMPRESSION: There is a 4 x 11 mm osseous fragment located in the lower portion of the lateral clear space that could be chronic, however, acute fracture is not entirely ruled out. If there is clinical concern, consider CT right ankle without contrast. Electronically signed by: Nicola Roberson MD 04/11/2025 01:39 PM EST
== END 2025-04-11 11:44 | disposition home or self-care (01) ==
LOC: HO.HMGCX 11:43
PROVIDERS: PCP Internal Medicine; Visit Provider Nurse Practitioner Family
DX: S96.911A Strain of unspecified muscle and tendon at ankle and foot level, right foot, initial encounter (principal); M25.471 Effusion, right ankle; W18.43XA Slipping, tripping and stumbling without falling due to stepping from one level to another, initial encounter
CPT/HCPCS: 73610; 99212

== ENCOUNTER → 2025-04-11 13:20 | Outpatient (BNV) | payer OTHER, SELFPAY | PROVIDERS: PCP Internal Medicine; Visit Provider Radiology Diagnostic Radiology | DX: S96.911A Strain of unspecified muscle and tendon at ankle and foot level, right foot, initial encounter (principal) | CPT/HCPCS: 73610 ==